=== PATIENT | female | born 1935 | race Native Hawaiian/Other Pacific Islander ===

== ENCOUNTER 2017-04-16 11:17 | Observation (INO) | payer MEDICARE ==
--- NOTE | 2017-04-16 12:37 | ED PDOC ---
HPI: Chest Pain Time Seen by Provider: 04/16/17 12:04 Chief Complaint (Nursing): Chest Pain Chief Complaint (Provider): Chest pain History Per: Patient History/Exam Limitations: no limitations Onset/Duration Of Symptoms: Days (x1) Current Symptoms Are (Timing): Still Present Quality: Other (heaviness) Associated Symptoms: Other (SOB, generalized weakness. ) Additional Complaint(s): Jaja Carballo is an 82 year old female, with a past medical history of hypercholesterolemia, hypertension, and diabetes, who presents to the emergency department complaining of chest pain associated with shortness of breath and generalized weakness onset since last night. Patient describes the pain as heaviness. Patient states last time she had a stress test was many years ago. She denies any fever, chills or cough. No further medical complaints. PMD: Becky Gayle Past Medical History Reviewed: Historical Data, Nursing Documentation, Vital Signs Vital Signs: Last Vital Signs Temp 98.0 F 04/16/17 12:03 Pulse 82 04/16/17 12:35 Resp 16 04/16/17 12:03 BP 154/72 H 04/16/17 12:03 Pulse Ox 95 04/16/17 12:45 - Medical History PMH: Diabetes, Gastritis, HTN, Hypercholesterolemia - Surgical History Surgical History: - Family History Family History: States: Unknown Family Hx - Home Medications Home Medications: Ambulatory Orders Medication Instructions Recorded Hydrochlorothiazide [Microzide] 12.5 mg PO DAILY 04/16/17 Losartan [Cozaar] 50 mg PO DAILY 04/16/17 Rosuvastatin Calcium [Crestor] 5 mg PO DAILY 04/16/17 metFORMIN [glucOPHAGE] 500 mg PO DAILY 04/16/17 - Allergies Allergies/Adverse Reactions: Allergies Allergy/AdvReac Type Severity Reaction Status Date / Time iodine Allergy RASH Verified 05/05/15 21:53 MICHELINE Risk Score for UA/NSTEMI - MICHELINE Risk Score Age > 64: YES 3 or more CAD Risk Factors: YES Known CAD (Stenosis greater than 50%): NO Aspirin use in past 7 days: NO Severe Angina: NO EKG ST changes greater than 0.5mm: NO Positive Cardiac Marker: NO MICHELINE Score: 2 Risk %: 8% Review of Systems ROS Statement: Except As Marked, All Systems Reviewed And Found Negative Constitutional: Positive for: Weakness (generalized). Negative for: Fever, Chills Cardiovascular: Positive for: Chest Pain Respiratory: Positive for: Shortness of Breath. Negative for: Cough Physical Exam - Reviewed Nursing Documentation Reviewed: Yes Vital Signs Reviewed: Yes - Physical Exam Appears: Positive for: Non-toxic Head Exam: Positive for: ATRAUMATIC, NORMAL INSPECTION, NORMOCEPHALIC Skin: Positive for: Normal Color, Warm, Dry Eye Exam: Positive for: Normal appearance, EOMI, PERRL Neck: Positive for: Painless ROM, Supple Cardiovascular/Chest: Positive for: Regular Rate, Rhythm. Negative for: Chest Non Tender (minimal sternal ), Murmur Respiratory: Positive for: Normal Breath Sounds. Negative for: Respiratory Distress Gastrointestinal/Abdominal: Positive for: Normal Exam, Soft. Negative for: Tenderness, Guarding, Rebound Back: Positive for: Normal Inspection. Negative for: L CVA Tenderness, R CVA Tenderness, Vertebral Tenderness Extremity: Positive for: Normal ROM. Negative for: Tenderness, Pedal Edema, Deformity, Swelling Neurologic/Psych: Positive for: Alert, Oriented. Negative for: Motor/Sensory Deficits - Laboratory Results Result Diagrams: 04/16/17 12:42 04/16/17 12:42 - ECG Interpretation Of ECG: NSR @ 93, nonspecific T wave abnormality. O2 Sat by Pulse Oximetry: 95 (RA) Pulse Ox Interpretation: Normal Medical Decision Making Medical Decision Making: Initial Impression: Chest pain Initial Plan: --EKG --CMP --Troponin I --Urine dipstick --CBC w/ differential --PTT --PT --Chest portable [RAD] --Urinalysis --Reevaluation Accession No. : [id number] Patient Name / ID : JOHN MYERS / [id number] Exam Date : 04/16/2017 12:41:58 ( Approved ) Study Comment : Sex / Age : F / 82Y Creator : Darryl Cespedes MD Dictator : Darryl Cespedes MD Engineering Analyst : Service Center Coordinator : Darryl Cespedes MD Approver2 : Report Date : 04/16/2017 13:41:56 My Comment : HISTORY: Chest pain COMPARISON: None. FINDINGS: LUNGS: No active pulmonary disease. PLEURA: No significant pleural effusion identified, no pneumothorax apparent. CARDIOVASCULAR: No radiographic findings to suggest acute or significant cardiovascular disease. OSSEOUS STRUCTURES: No significant abnormalities. VISUALIZED UPPER ABDOMEN: Normal. OTHER FINDINGS: None. IMPRESSION: No active disease. Scribe Attestation: Documented by Chaim Peng, acting as a scribe for Natacha Langston MD Provider Scribe Attestation: All medical record entries made by the Scribe were at my direction and personally dictated by me. I have reviewed the chart and agree that the record accurately reflects my personal performance of the history, physical exam, medical decision making, and the department course for this patient. I have also personally directed, reviewed, and agree with the discharge instructions and disposition. Disposition - Disposition Forms: Your Image by Brooke (Mongolian)
[2017-04-16 13:09] LABS: BASO % 0.3 % (0.0-2.0); EOS % 0.3 % (0.0-4.0); LYMPH # 1.8 K/uL (1.0-4.3); MEAN CELL VOLUME 94.1 fl (81.0-99.0); MEAN CORPUSCULAR HEMOGLOBIN 31.3 pg (27.0-31.0); MEAN CORPUSCULAR HGB CONC 33.2 g/dL (33.0-37.0); MONO # 0.4 K/uL (0.0-0.8); NEUT # 8.2 K/uL (1.8-7.0); NEUT % 78.4 % (50.0-75.0); NRBC % 0.3 % (0.0-0.0); RBC 3.83 Mil/uL (3.80-5.20); RED CELL DISTRIBUTION WIDTH 12.3 % (11.5-14.5); WHITE BLOOD COUNT 10.5 K/uL (4.8-10.8)
[2017-04-16 13:20] LABS: ALB/GLOB RATIO 1.2 (1.0-2.1); ALBUMIN 4.1 g/dL (3.5-5.0); ALT/SGPT 30 U/L (9-52); AST/SGOT 34 U/L (14-36); BLOOD UREA NITROGEN 13 mg/dl (7-17); CALCIUM 9.9 mg/dL (8.4-10.2); GFR AFRICAN-AMERICAN > 60; GFR NON-AFRICAN AMERICAN > 60
[2017-04-16 13:25] LABS: PARTIAL THROMBOPLASTIN TIME 36.9 Seconds (25.6-37.1); PROTHROMBIN TIME 11.5 Seconds (9.8-13.1)
--- NOTE | 2017-04-16 13:43 | RAD ---
HISTORY: Chest pain COMPARISON: None. FINDINGS: LUNGS: No active pulmonary disease. PLEURA: No significant pleural effusion identified, no pneumothorax apparent. CARDIOVASCULAR: No radiographic findings to suggest acute or significant cardiovascular disease. OSSEOUS STRUCTURES: No significant abnormalities. VISUALIZED UPPER ABDOMEN: Normal. OTHER FINDINGS: None. IMPRESSION: No active disease.
[2017-04-16 14:27] LABS: SQUAMOUS EPITHIAL 1 /hpf (0-5); URINE BILIRUBIN NEGATIVE (NEGATIVE); URINE BLOOD NEGATIVE (NEGATIVE); URINE CLARITY CLOUDY (Clear); URINE COLOR AMBER (YELLOW); URINE GLUCOSE (UA) NEG (Normal); URINE HYALINE CAST 0-2 /hpf (0-2); URINE LEUKOCYTE ESTERASE TRACE Leu/uL (Negative); URINE NITRATE NEGATIVE (NEGATIVE); URINE PROTEIN NEGATIVE (NEGATIVE); URINE UROBILINOGEN 0.2-1.0 mg/dL (0.2-1.0)
[2017-04-16 17:50] VITALS: BMI 23.3
[2017-04-17 00:56] VITALS: RESP 18
[2017-04-17 08:26] VITALS: BP 126/76; PULSE 79; TEMP 98; O2SAT 96
[2017-04-17] MEDS ORDERED: Enoxaparin 30 mg Syringe SC SCH (09:00)
--- NOTE | 2017-04-17 09:44 | CP.PCM.HP ---
History of Present Illness - History of Present Illness History of Present Illness: tthis 82-year-old female, with a history of hypertension and diabetes mellitus came to the emergency room complaining of a left-sided chest discomfort quite unconnected to any physical activity. The patient denied any radiation to the jaw or to the arm and this was never accompanied by any perspiration or nausea or vomiting. The discomfort lasted a few minutes and spontaneously resolved. It was not aggravated by deep inspiration or coughing. There was no fever or expectorate.the patient has never been a smoker and there is no history of prior myocardial infarction or congestive cardiac failure. Physical examination shows an elderly pleasant lady who is free of any pain at this point. She is alert of a coherent and afebrile. Her telemetry shows sinus rhythm at physiological rates. Her blood pressure was 124/74 mmHg. Her jugular venous pressure was not elevated and there was no edema over her lower extremities. The pedal pulses were well felt. There were no carotid bruits. There was a mild degree of tenderness in the left parasternal area. The apex was not palpable. The first and second heart sounds were normal. There was no murmur or gallop. There were no rales. Her electro-cardiogram taken in the emergency room and again this morning showed sinus rhythm with a normal EKG pattern. There were no ST-T abnormalities indicative of active myocardial ischemia. Her lab tests show normal troponin levels indicating no evidence off myocyte injury. The rest of her labs were normal. Impression: atypical chest pain no evidence of acute coronary syndrome. Hypertension and diabetes mellitus. The patient may be allowed to return home to continue her treatment as an outpatient. Present on Admission - Present on Admission Any Indicators Present on Admission: No Past Patient History - Infectious Disease Hx of Infectious Diseases: None - Past Medical History & Family History Past Medical History?: Yes - Past Social History Smoking Status: Never Smoked - CARDIAC Hx Cardiac Disorders: Yes Hx Hypertension: Yes - PULMONARY Hx Respiratory Disorders: No - NEUROLOGICAL Hx Neurological Disorder: No - HEENT Hx HEENT Problems: Yes Hx Cataracts: Yes - RENAL Hx Chronic Kidney Disease: No - ENDOCRINE/METABOLIC Hx Endocrine Disorders: Yes Hx Diabetes Mellitus Type 2: Yes - HEMATOLOGICAL/ONCOLOGICAL Hx Blood Disorders: No Hx AIDS: No Hx Human Immunodeficiency Virus (HIV): No - INTEGUMENTARY Hx Dermatological Problems: No - MUSCULOSKELETAL/RHEUMATOLOGICAL Hx Musculoskeletal Disorders: No Hx Falls: No - GASTROINTESTINAL Hx Gastrointestinal Disorders: Yes Hx Gastritis: Yes - GENITOURINARY/GYNECOLOGICAL Hx Genitourinary Disorders: No Other/Comment: MISCARRIAGE X2 - PSYCHIATRIC Hx Psychophysiologic Disorder: No Hx Substance Use: No - SURGICAL HISTORY Hx Surgeries: Yes Hx Section: Yes (x1) Other/Comment: LAPAROSCOPY 1 YR AGO - ANESTHESIA Hx Anesthesia: Yes Hx Anesthesia Reactions: No Hx Malignant Hyperthermia: No Has any member of the family had a problem w/ anesthesia?: No Meds Allergies/Adverse Reactions: Allergies Allergy/AdvReac Type Severity Reaction Status Date / Time iodine Allergy RASH Verified 05/05/15 21:53 Results - Vital Signs Recent Vital Signs: Last Vital Signs Temp 98 F 04/17/17 08:00 Pulse 79 04/17/17 08:24 Resp 18 04/17/17 08:00 BP 126/76 04/17/17 08:24 Pulse Ox 96 04/17/17 08:00 - Labs Result Diagrams: 04/16/17 12:42 04/16/17 12:42 Labs: Laboratory Results - last 24 hr 04/16/17 04/16/17 04/16/17 12:42 12:42 12:42 WBC 10.5 RBC 3.83 Hgb 12.0 Hct 36.0 MCV 94.1 MCH 31.3 H MCHC 33.2 RDW 12.3 Plt Count 234 MPV 8.0 Neut % (Auto) 78.4 H Lymph % (Auto) 17.0 L Castro % (Auto) 4.0 Eos % (Auto) 0.3 Baso % (Auto) 0.3 Neut # (Auto) 8.2 H Lymph # (Auto) 1.8 Castro # (Auto) 0.4 Eos # (Auto) 0.0 Baso # (Auto) 0.0 PT 11.5 INR 1.0 APTT 36.9 Sodium 135 Potassium 3.9 Chloride 95 L Carbon Dioxide 28 Anion Gap 16 BUN 13 Creatinine 0.5 L Est GFR ( Amer) > 60 Est GFR (Non-Af Amer) > 60 Random Glucose 111 H Calcium 9.9 Total Bilirubin 0.5 AST 34 ALT 30 Alkaline Phosphatase 85 Troponin I < 0.0120 Total Protein 7.6 Albumin 4.1 Globulin 3.5 Albumin/Globulin Ratio 1.2 Urine Color Urine Clarity Urine pH Ur Specific [place] Urine Protein Urine Glucose (UA) Urine Ketones Urine Blood Urine Nitrate Urine Bilirubin Urine Urobilinogen Ur Leukocyte Esterase Urine RBC (Auto) Urine Microscopic WBC Ur Squamous Epith Cells Hyaline Casts 04/16/17 04/16/17 13:45 19:57 WBC RBC Hgb Hct MCV MCH MCHC RDW Plt Count MPV Neut % (Auto) Lymph % (Auto) Castro % (Auto) Eos % (Auto) Baso % (Auto) Neut # (Auto) Lymph # (Auto) Castro # (Auto) Eos # (Auto) Baso # (Auto) PT INR APTT Sodium Potassium Chloride Carbon Dioxide Anion Gap BUN Creatinine Est GFR ( Amer) Est GFR (Non-Af Amer) Random Glucose Calcium Total Bilirubin AST ALT Alkaline Phosphatase Troponin I < 0.0120 Total Protein Albumin Globulin Albumin/Globulin Ratio Urine Color Adrianna Urine Clarity Cloudy Urine pH 5.0 Ur Specific [place] 1.017 Urine Protein Negative Urine Glucose (UA) Neg Urine Ketones Negative Urine Blood Negative Urine Nitrate Negative Urine Bilirubin Negative Urine Urobilinogen 0.2-1.0 Ur Leukocyte Esterase Trace Urine RBC (Auto) 3 Urine Microscopic WBC 3 Ur Squamous Epith Cells 1 Hyaline Casts 0-2
--- NOTE | 2017-04-17 19:01 | CARD ---
APPROVED REPORT EKG Measurement Heart [id number] MI [id number] <Conclusion> Normal sinus rhythm Possible Left atrial enlargement Borderline ECG
--- NOTE | 2017-04-17 19:16 | CARD ---
APPROVED REPORT EKG Measurement Heart [id number] [place] [id number] <Conclusion> Normal sinus rhythm Possible Left atrial enlargement Left ventricular hypertrophy Nonspecific T wave abnormality Abnormal ECG
== END 2017-04-17 11:24 | disposition home or self-care (01) ==
LOC: H.ER 11:17 → H.ERHOLD 13:50 → H.TEL 15:39
PROVIDERS: ADMIT Internal Medicine Cardiovascular Disease; ATTEND Internal Medicine Cardiovascular Disease
DX: R07.89 Other chest pain (principal); I10 Essential (primary) hypertension; K29.70 Gastritis, unspecified, without bleeding; Z79.84 Long term (current) use of oral hypoglycemic drugs; Z79.899 Other long term (current) drug therapy; E11.9 Type 2 diabetes mellitus without complications; E78.00 Pure hypercholesterolemia, unspecified
CPT/HCPCS: 71045; 80053; 81003; 84484; 85025; 85610; 85730; 93005; 99285; G0378; J1650

== ENCOUNTER 2017-05-06 00:16 | Emergency (ER) | payer MEDICARE ==
[2017-05-06 00:17] VITALS: BMI 23.3
[2017-05-06 00:28] VITALS: TEMP 97.9
[2017-05-06] MEDS ORDERED: Sodium Chloride 0.9% 1,000 ML IV STA (00:48)
--- NOTE | 2017-05-06 01:03 | ED PDOC ---
HPI: Abdomen Time Seen by Provider: 05/06/17 00:27 Chief Complaint (Nursing): GI Problem Chief Complaint (Provider): Abdominal Pain History Per: Patient History/Exam Limitations: no limitations, physical impairment Onset/Duration Of Symptoms: Persistent Outside of [place] travel?: No Current Symptoms Are (Timing): Still Present Location Of Pain/Discomfort: Epigastric Associated Symptoms: Vomiting. denies: Fever, Diarrhea Additional Complaint(s): 82 year old female presents to ED with complaints of persistent abdominal pain and has a past medical history of HTN, gastritis, and diverticulitis. Notes she was just seen at [facility] for gastritis, her CT showed mild diverticulitis, and was subsequently discharged with medication. (+) "gastritic" pain in the mid -epigastric region, vomiting x7 episodes, and weakness status post vomiting. (- ) fever, diarrhea, or suprapubic pain. PCP: Blake Gayle V Past Medical History Reviewed: Historical Data, Nursing Documentation, Vital Signs Vital Signs: Last Vital Signs Temp 97.9 F 05/06/17 00:25 Pulse 76 05/06/17 05:41 Resp 14 05/06/17 05:41 BP 133/61 05/06/17 05:41 Pulse Ox 98 05/06/17 05:41 - Medical History PMH: Diabetes, Gastritis, HTN, Hypercholesterolemia Denies: HIV, Chronic Kidney Disease - Surgical History Surgical History: Cholecystectomy, Other surgeries: Laparoscopy - Family History Family History: States: Unknown Family Hx - Social History Current smoker - smoking cessation education provided: No Ex-Smoker (has not smoked in the last 12 months): No Alcohol: None Drugs: Denies - Home Medications Home Medications: Ambulatory Orders Medication Instructions Recorded Hydrochlorothiazide [Microzide] 12.5 mg PO DAILY 04/16/17 Losartan [Cozaar] 50 mg PO DAILY 04/16/17 Rosuvastatin Calcium [Crestor] 5 mg PO DAILY 04/16/17 metFORMIN [glucOPHAGE] 500 mg PO DAILY 04/16/17 Famotidine [Pepcid] 20 mg PO BID PRN #10 tab 05/06/17 - Allergies Allergies/Adverse Reactions: Allergies Allergy/AdvReac Type Severity Reaction Status Date / Time iodine Allergy RASH Verified 05/05/15 21:53 Review of Systems ROS Statement: Except As Marked, All Systems Reviewed And Found Negative Constitutional: Negative for: Fever Gastrointestinal: Positive for: Vomiting, Abdominal Pain (mid-epigastric). Negative for: Diarrhea Physical Exam - Reviewed Nursing Documentation Reviewed: Yes Vital Signs Reviewed: Yes - Physical Exam Appears: Positive for: Non-toxic, No Acute Distress (slightly weak) Skin: Positive for: Normal Color, Warm, Dry Eye Exam: Positive for: Normal appearance ENT: Positive for: Normal ENT Inspection Cardiovascular/Chest: Positive for: Regular Rate, Rhythm. Negative for: Murmur Respiratory: Positive for: Normal Breath Sounds. Negative for: Respiratory Distress Gastrointestinal/Abdominal: Positive for: Soft, Tenderness (mid-epigastric tenderness. No RUQ/RLQ tenderness), Other (laparoscopic surgical scar) Back: Positive for: Normal Inspection Extremity: Positive for: Normal ROM. Negative for: Deformity Neurologic/Psych: Positive for: Alert, Oriented - Laboratory Results Result Diagrams: 05/06/17 01:16 05/06/17 01:16 - ECG O2 Sat by Pulse Oximetry: 99 (RA) Pulse Ox Interpretation: Normal Medical Decision Making Medical Decision Makin Initial impression: gastritis Initial plan: * Labs * Lipase * NS IV * Pepcid 20mg IVP * Zofran Inj 4mg IVP * Re-eval 0230 Labs reviewed: patient's potassium is low. * Potassium Chloride 40meq PO * Re-eval 0515 CXR: NAD as per provider. Trop: negative Patient notes that she feels better after belching. Patient is stable for discharge home. Return precautions discussed with patient and advised patient to follow up with PCP in 1-2 days. Condition: improved Scribe Attestation: Documented by Yasmeen Perez acting as a scribe for Sung Smart MD. Scribe Attestation: All medical record entries made by the Scribe were at my direction and personally dictated by me. I have reviewed the chart and agree that the record accurately reflects my personal performance of the history, physical exam, medical decision making, and the department course for this patient. I have also personally directed, reviewed, and agree with the discharge instructions and disposition. Disposition - Clinical Impression Clinical Impression: Gastritis - Patient ED Disposition Is Patient to be Admitted: No Counseled Patient/Family Regarding: Studies Performed, Diagnosis, Need For Followup - Disposition Disposition: Routine/Home Disposition Time: 04:05 Condition: IMPROVED Additional Instructions: follow up with your primary doctor in 1-2 days return to the ED with any worsening or concerning symptoms Prescriptions: Famotidine [Pepcid] 20 mg PO BID PRN #10 tab PRN Reason: Heartburn Instructions: Gastritis Forms: [facility] (Macedonian)
[2017-05-06 01:23] LABS: BASO % 0.5 % (0.0-2.0); EOS # 0.1 K/uL (0.0-0.7); EOS % 1.2 % (0.0-4.0); HEMOGLOBIN 12.1 g/dL (12.0-16.0); LYMPH # 1.8 K/uL (1.0-4.3); LYMPH % 27.1 % (20.0-40.0); MEAN CELL VOLUME 95.1 fl (81.0-99.0); MEAN CORPUSCULAR HEMOGLOBIN 31.6 pg (27.0-31.0); MEAN CORPUSCULAR HGB CONC 33.3 g/dL (33.0-37.0); MEAN PLATELET VOLUME 7.9 fl (7.2-11.7); MONO # 0.5 K/uL (0.0-0.8); MONO % 7.4 % (0.0-10.0); NEUT # 4.2 K/uL (1.8-7.0); NEUT % 63.8 % (50.0-75.0); NRBC % 0.2 % (0.0-0.0); RBC 3.82 Mil/uL (3.80-5.20); RED CELL DISTRIBUTION WIDTH 12.4 % (11.5-14.5); WHITE BLOOD COUNT 6.6 K/uL (4.8-10.8)
[2017-05-06 02:04] LABS: ALBUMIN 4.2 g/dL (3.5-5.0); ALT/SGPT 25 U/L (9-52); AST/SGOT 32 U/L (14-36); BLOOD UREA NITROGEN 7 mg/dl (7-17); CALCIUM 10.2 mg/dL (8.4-10.2); GFR AFRICAN-AMERICAN > 60; GFR NON-AFRICAN AMERICAN > 60; LIPASE 103 U/L (23-300)
[2017-05-06] MEDS ORDERED: Potassium Chloride 20 mEq ER Tab PO ONE ×2 (02:37→03:30)
[2017-05-06 05:42] VITALS: BP 133/61; PULSE 76; RESP 14
--- NOTE | 2017-05-06 10:01 | RAD ---
HISTORY: chest pain COMPARISON: Chest radiograph dated 04/16/2017. TECHNIQUE: Chest PA and lateral FINDINGS: LUNGS: No active pulmonary disease. PLEURA: No significant pleural effusion identified. No pneumothorax apparent. CARDIOVASCULAR: Atherosclerotic aortic calcifications. Cardiomediastinal silhouette unchanged. OSSEOUS STRUCTURES: Unchanged. VISUALIZED UPPER ABDOMEN: Right upper quadrant surgical clips redemonstrated. OTHER FINDINGS: None. IMPRESSION: No active disease.
[2017-05-07 05:21] VITALS: O2SAT 99
== END 2017-05-06 05:46 | disposition home or self-care (01) ==
LOC: H.ER 00:16
DX: K29.70 Gastritis, unspecified, without bleeding (principal); E11.9 Type 2 diabetes mellitus without complications; I10 Essential (primary) hypertension; Z87.891 Personal history of nicotine dependence; Z79.84 Long term (current) use of oral hypoglycemic drugs; E78.00 Pure hypercholesterolemia, unspecified
CPT/HCPCS: 71046; 80053; 83690; 84484; 85025; 96374; 99283; J2405; J7040

== ENCOUNTER 2017-05-08 14:09 | Inpatient (IN) | payer MEDICARE ==
[2017-05-08 14:09] VITALS: BMI 23.3
[2017-05-08] MEDS ORDERED: Sodium Chloride 0.9% 1,000 ML IV ONE (15:00)
--- NOTE | 2017-05-08 15:00 | ED PDOC ---
HPI: Abdomen <Hetal Casillas - Last Filed: 05/08/17 17:56> <Louie Lipscomb III - Last Filed: 05/08/17 18:40> Chief Complaint (Nursing): Abdominal Pain Additional Complaint(s): 82yo F with PMHx HTN, HLD c/o abd pain. generalized abd pain, constant, no radiation, a/w nausea[place] [facility] [place] showing mild diverticulitis on CT abd/pelvis, d/c with cipro/flagyl po. Pt continued to not feel well and [facility] ED visit 4 days ago, d/c with pepcid PO. Continues to have decreased PO, afebrile, nausea, loose BM. Seen by GI today and reccommended pt get eval in ED if not improved. Last took cipro/flagyl this AM. PCP: Dr. Gayle (Hetal Casillas) Supervising Attending Note <Hetal Casillas - Last Filed: 05/08/17 17:56> - Attestation: I have personally seen and examined this patient.: Yes I have fully participated in the care of the patient.: Yes I have reviewed all pertinent clinical information: Yes <Louie Lipscomb III - Last Filed: 05/08/17 18:40> - Notes: Notes:: 82yo female with now worsening diverticulitis w microperforation w failure outpatient therapy Zosyn initiated Does not meet SIRS criteria, stable for med surg Discussed w Dr Brown 620p covering PMD Dr Tyron Gayle- admit hospitalist D/w Dr Recinos hospitalist 630p Admitting team to decide on GI consult (Louie Lipscomb III) Past Medical History Reviewed: Historical Data, Nursing Documentation, Vital Signs - Medical History PMH: Diabetes, Gastritis, HTN, Hypercholesterolemia Denies: HIV, Chronic Kidney Disease - Surgical History Surgical History: Cholecystectomy, - Family History Family History: States: Unknown Family Hx <Hetal Casillas - Last Filed: 05/08/17 17:56> <Louie Lipscomb III - Last Filed: 05/08/17 18:40> Vital Signs: Last Vital Signs Temp 98.0 F 05/08/17 14:33 Pulse 90 05/08/17 14:33 Resp 16 05/08/17 14:33 BP 148/76 05/08/17 14:33 Pulse Ox 97 05/08/17 17:57 - Home Medications Home Medications: Ambulatory Orders Medication Instructions Recorded Hydrochlorothiazide [Microzide] 12.5 mg PO DAILY 04/16/17 Losartan [Cozaar] 50 mg PO DAILY 04/16/17 Rosuvastatin Calcium [Crestor] 5 mg PO HS 04/16/17 metFORMIN [glucOPHAGE] 500 mg PO QPM 04/16/17 Famotidine [Pepcid] 20 mg PO BID PRN #10 tab 05/06/17 Ascorbic Acid [Vitamin C 500 mg 500 mg PO DAILY 05/08/17 Tab] Cholecalciferol (Vitamin D3) 5,000 unit PO BID 05/08/17 [Vitamin D3] Ciprofloxacin [Cipro] 500 mg PO Q12 05/08/17 Glucosamn/[place]n/C/Mn/[place] 1 tab PO BID 05/08/17 [Cvs Glucosamine Chondroitin Tb] Vit A/Vit C/Vit E/Zinc/Copper 1 tab PO BID 05/08/17 [Preservision Areds Tablet] Vitamin B Complex [Balance B-100] 1 tab PO DAILY 05/08/17 metroNIDAZOLE [Flagyl] 500 mg PO Q8 05/08/17 - Allergies Allergies/Adverse Reactions: Allergies Allergy/AdvReac Type Severity Reaction Status Date / Time iodine Allergy RASH Verified 05/05/15 21:53 Review of Systems ROS Statement: Except As Marked, All Systems Reviewed And Found Negative Gastrointestinal: Positive for: Nausea, Abdominal Pain <Tu,Ting - Last Filed: 05/08/17 17:56> Physical Exam - Reviewed Nursing Documentation Reviewed: Yes Vital Signs Reviewed: Yes - Physical Exam Appears: Positive for: Well, Non-toxic Head Exam: Positive for: ATRAUMATIC, NORMAL INSPECTION Skin: Positive for: Warm, Dry Eye Exam: Positive for: Normal appearance Neck: Positive for: Normal, Supple Cardiovascular/Chest: Positive for: Regular Rate, Rhythm, Chest Non Tender Respiratory: Positive for: Normal Breath Sounds. Negative for: Decreased Breath Sounds Gastrointestinal/Abdominal: Positive for: Bowel Sounds, Soft, Tenderness Back: Positive for: Normal Inspection Extremity: Positive for: Normal ROM Lymphatic: Negative for: Adenopathy Neurologic/Psych: Positive for: Alert, Oriented <Tu,Ting - Last Filed: 05/08/17 17:56> - Laboratory Results Result Diagrams: 05/08/17 15:18 05/08/17 15:18 - ECG O2 Sat by Pulse Oximetry: 97 <Hetal Casillas - Last Filed: 05/08/17 17:56> - Laboratory Results Result Diagrams: 05/08/17 15:18 05/08/17 15:18 <Louie Lipscomb III - Last Filed: 05/08/17 18:40> Medical Decision Making <Hetal Casillas - Last Filed: 05/08/17 17:56> <Louie Lipscomb III - Last Filed: 05/08/17 18:40> Medical Decision Making: DDx diverticulitis, abd abscess CBC, CMP NS 125cc/hr zofran 4mg IV x1 pepcid 20mg IV x1 reassessment [address] abd/pelvis PO/IV cont reassessment 1754 CT abd/pelvis PO/IV cont: acute sigmoid diverticulitis admit to hospital, pt failed outpt therapy blood cx zosyn (Hetal Casillas) Disposition - Disposition Disposition Time: 17:57 <Hetal Casillas - Last Filed: 05/08/17 17:56> <Louie Lipscomb III - Last Filed: 05/08/17 18:40> - Clinical Impression Clinical Impression: Sigmoid diverticulitis - Disposition Condition: STABLE Forms: [facility] (Vietnamese)
[2017-05-08 15:22] LABS: BASO % 0.5 % (0.0-2.0); EOS % 0.1 % (0.0-4.0); HEMOGLOBIN 12.6 g/dL (12.0-16.0); LYMPH # 1.7 K/uL (1.0-4.3); LYMPH % 21.9 % (20.0-40.0); MEAN CELL VOLUME 94.1 fl (81.0-99.0); MEAN CORPUSCULAR HEMOGLOBIN 32.2 pg (27.0-31.0); MEAN CORPUSCULAR HGB CONC 34.2 g/dL (33.0-37.0); MEAN PLATELET VOLUME 7.8 fl (7.2-11.7); MONO # 0.4 K/uL (0.0-0.8); MONO % 4.9 % (0.0-10.0); NEUT # 5.7 K/uL (1.8-7.0); NEUT % 72.6 % (50.0-75.0); NRBC % 0.1 % (0.0-0.0); RBC 3.91 Mil/uL (3.80-5.20); RED CELL DISTRIBUTION WIDTH 12.5 % (11.5-14.5); WHITE BLOOD COUNT 7.8 K/uL (4.8-10.8)
[2017-05-08 15:55] LABS: ALB/GLOB RATIO 1.1 (1.0-2.1); ALBUMIN 4.4 g/dL (3.5-5.0); ALT/SGPT 55 U/L (9-52); AST/SGOT 67 U/L (14-36); BLOOD UREA NITROGEN 6 mg/dl (7-17); CALCIUM 9.4 mg/dL (8.4-10.2); GFR AFRICAN-AMERICAN > 60; GFR NON-AFRICAN AMERICAN > 60
[2017-05-08] MEDS ORDERED: Iohexol 240 (50 ml) PO ONE (15:58)
--- NOTE | 2017-05-08 17:47 | CT ---
PROCEDURE: CT Abdomen and Pelvis without intravenous contrast HISTORY: LLQ and epigastric pain, dx diverticulitis thursday COMPARISON: None. TECHNIQUE: Unenhanced study. Neither oral nor intravenous contrast administered. Sensitivity and specificity for acute inflammatory processes limited by the absence of oral and intravenous contrast. Radiation dose: Total exam DLP = 335.61 mGy-cm. This CT exam was performed using one or more of the following dose reduction techniques: Automated exposure control, adjustment of the mA and/or kV according to patient size, and/or use of iterative reconstruction technique. FINDINGS: LOWER THORAX: Unremarkable. LIVER: Unremarkable. No gross lesion or ductal dilatation. GALLBLADDER AND BILE DUCTS: Status post cholecystectomy. No abnormality is seen in the gallbladder fossa. PANCREAS: Unremarkable. No gross lesion or ductal dilatation. SPLEEN: Unremarkable. ADRENALS: Unremarkable. No mass. KIDNEYS AND URETERS: Unremarkable. No hydronephrosis. No solid mass. VASCULATURE: Unremarkable. No aortic aneurysm. BOWEL: Severe sigmoid diverticulosis with acute inflammatory component. Small micro perforations identified. Sparing of the rectum and ascending colon with respect to the inflammatory component. APPENDIX: Unremarkable. Normal appendixA normal appendix is not visualized. There are no right lower quadrant inflammatory changes or other indirect signs of acute appendicitis. . PERITONEUM: Unremarkable. No free fluid. No free air. LYMPH NODES: Unremarkable. No enlarged lymph nodes. BLADDER: Unremarkable. REPRODUCTIVE: Unremarkable. BONES: No acute fracture. Scoliosis, secondary degenerative change at multiple levels. OTHER FINDINGS: None. IMPRESSION: Acute sigmoid diverticulitis. Additional benign and/or incidental findings described above.
[2017-05-08] MEDS ORDERED: Piperacillin/Tazobact 4.5 GM in Sodium Chloride 0.9% 100 ML IVPB STA (17:51)
[2017-05-08] MEDS ORDERED: Dextrose 5%/0.9% NS 1,000 ML IV ONE (19:04)
[2017-05-08] MEDS ORDERED: Alum-Mag Hydrox-Simethicone Susp (30 mL) PO PRN (19:07)
[2017-05-08] MEDS ORDERED: Alum-Mag Hydrox-Simethicone Susp (30 mL) PO ONE (19:07)
--- NOTE | 2017-05-08 19:33 | CP.PCM.HP ---
History of Present Illness - History of Present Illness History of Present Illness: CC: Abdominal pain This is an 82 year old female with a past medical history significant for hypertension, hyperlipidemia, Type 2 DM controlled with Metformin, who presents to the ED with the complaint of generalized abdominal pain, nausea without vomiting. The pain is mild to moderate, dull, crampy, constant, associated with several bouts of diarrhea yesterday and today. The patient was seen at [facility] [address] days ago and had CT abdomen/pelvis revealing diverticulitis at that time and was discharged with Cipro/Flagyl. the patient continued to have nuasea and abdominal painand then came to the [facility] ED 4 days ago, was tx for hypokalemia and reflux sx and discharged with Pepcid. the patient now presents again to [facility] ED. here in the ED she had repeat CT scan of the abdomen which showed Acute signoid diverticulitis with multiple small micro perforations identified. The patient 's labs show hyponatremia 130, K 3.8, chloride 89, AST of 67, ALT of 55. The patient is to be placed on med/surg observation for further workup and GI consultation. Patient denies chest pain, shortness of breath, fevers, chills, headache. All of the patient's questions were answered at the bedside. Present on Admission - Present on Admission Any Indicators Present on Admission: No Review of Systems - Review of Systems Review of Systems: A 12 point ROS was conducted and found to be negative other than what was mentioned in the HPI. Past Patient History - Infectious Disease Hx of Infectious Diseases: None - Past Medical History & Family History Past Medical History?: Yes Past Family History: Reviewed and not pertinent - Past Social History Smoking Status: Never Smoked Alcohol: None Drugs: Denies - CARDIAC Hx Hypercholesterolemia: Yes Hx Hypertension: Yes - PULMONARY Hx Respiratory Disorders: No - NEUROLOGICAL Hx Neurological Disorder: No - HEENT Hx HEENT Problems: Yes Hx Cataracts: Yes - RENAL Hx Chronic Kidney Disease: No - ENDOCRINE/METABOLIC Hx Endocrine Disorders: Yes Hx Diabetes Mellitus Type 2: Yes - HEMATOLOGICAL/ONCOLOGICAL Hx Human Immunodeficiency Virus (HIV): No - INTEGUMENTARY Hx Dermatological Problems: No - MUSCULOSKELETAL/RHEUMATOLOGICAL Hx Musculoskeletal Disorders: No Hx Falls: No - GASTROINTESTINAL Hx Gastritis: Yes - GENITOURINARY/GYNECOLOGICAL Hx Genitourinary Disorders: No Other/Comment: MISCARRIAGE X2 - PSYCHIATRIC Hx Psychophysiologic Disorder: No Hx Substance Use: No - SURGICAL HISTORY Hx Cholecystectomy: Yes - ANESTHESIA Hx Anesthesia: Yes Hx Anesthesia Reactions: No Hx Malignant Hyperthermia: No Meds Allergies/Adverse Reactions: Allergies Allergy/AdvReac Type Severity Reaction Status Date / Time iodine Allergy RASH Verified 05/05/15 21:53 Physical Exam - Additional Findings Additional findings: Physical exam: Constitutional- cooperative, awake, alert Head- NCAT, PERRL Eye- PERRL, EOMI ENT- normal exam, MMM. Neck- normal inspection, supple, no JVD Respiratory- CTAB, no wheezes rales rhonchi Cardiovascular- RRR, +S1, +S2 no MRG GI/Abdominal- mild diffuse tenderness most prominent in the LLQ, normal bowel sounds, soft, no mass, no hsm Skin- warm, dry Extremities Exam- normal capillary refill, normal inspection Neurological Exam- alert, awake, oriented Psych- normal mood, normal affect Results - Vital Signs Recent Vital Signs: Last Vital Signs Temp 98.0 F 05/08/17 14:33 Pulse 90 05/08/17 14:33 Resp 16 05/08/17 14:33 BP 148/76 05/08/17 14:33 Pulse Ox 97 05/08/17 17:57 - Labs Result Diagrams: 05/08/17 15:18 05/08/17 15:18 Labs: Laboratory Results - last 24 hr 05/08/17 05/08/17 15:18 15:18 WBC 7.8 RBC 3.91 Hgb 12.6 Hct 36.8 MCV 94.1 MCH 32.2 H MCHC 34.2 RDW 12.5 Plt Count 247 MPV 7.8 Neut % (Auto) 72.6 Lymph % (Auto) 21.9 [place] % (Auto) 4.9 Eos % (Auto) 0.1 Baso % (Auto) 0.5 Neut # (Auto) 5.7 Lymph # (Auto) 1.7 [place] # (Auto) 0.4 Eos # (Auto) 0.0 Baso # (Auto) 0.0 Sodium 130 L Potassium 3.8 Chloride 89 L Carbon Dioxide 26 Anion Gap 19 BUN 6 L Creatinine 0.5 L Est GFR ( Amer) > 60 Est GFR (Non-Af Amer) > 60 Random Glucose 123 H Calcium 9.4 Total Bilirubin 0.4 AST 67 H D ALT 55 H D Alkaline Phosphatase 70 Total Protein 8.3 H Albumin 4.4 Globulin 3.9 Albumin/Globulin Ratio 1.1 Assessment & Plan - Assessment and Plan (Free Text) Plan: ASSESSMENT/PLAN 82 yo female with a past medical history significant for hypertension, hyperlipidemia, Type 2 DM controlled with Metformin, admitted to the hospital for recurrent diverticulitis not responding to PO antibiotics. 1) Recurrent diverticulitis not responding to PO ABX - Med/surg obs - Consultation with Dr. Dejesus for GI - Zosyn 3.375mg IVPB q 6 hours, required as patient did not respond to cipro/ flagyl - NPO except for meds and ice chips - IV fluids, D5 NS at 125 cc/hour 2) Hypertension - Continue HCTZ 12.5 mg po daily - Continue Losartan 50 mg po daily - Monitor BP 3) Hyperlipidemia - Continue statin - Chronic 4) DM type 2 - Start sliding scale with accucheks AC+HS - appears well controlled - Hold metformin due to CT w/ contrast 5) DVT prophylaxis - SCDs
[2017-05-08] MEDS ORDERED: Alum-Mag Hydrox-Simethicone Susp (30 mL) ONE (19:52)
[2017-05-08] MEDS: Piperacillin/Tazobact 3.375 GM in Sodium Chloride 0.9% 100 ML IVPB SCH (22:32)
[2017-05-09] MEDS: Piperacillin/Tazobact 3.375 GM in Sodium Chloride 0.9% 100 ML IVPB SCH ×4 (04:19→21:35)
[2017-05-09 07:10] LABS: HEMOGLOBIN 11.1 g/dL (12.0-16.0); MEAN CELL VOLUME 93.6 fl (81.0-99.0); MEAN CORPUSCULAR HEMOGLOBIN 32.5 pg (27.0-31.0); MEAN CORPUSCULAR HGB CONC 34.8 g/dL (33.0-37.0); RBC 3.4 Mil/uL (3.80-5.20); RED CELL DISTRIBUTION WIDTH 12.5 % (11.5-14.5); WHITE BLOOD COUNT 5.7 K/uL (4.8-10.8)
[2017-05-09 07:16] LABS: BLOOD UREA NITROGEN 3 mg/dl (7-17); CALCIUM 8.6 mg/dL (8.4-10.2); GFR AFRICAN-AMERICAN > 60; GFR NON-AFRICAN AMERICAN > 60
--- NOTE | 2017-05-09 08:31 | CP.PCM.CON ---
History of Present Illness - History of Present Illness History of Present Illness: 82 year old female presents to the ED with the complaint of generalized abdominal pain, nausea without vomiting. The pain is mild to moderate, dull, crampy, constant, associated with several bouts of diarrhea yesterday and today. The patient was seen at [facility] [address] abdomen/pelvis revealing diverticulitis at that time and was discharged with Cipro/Flagyl. the patient continued to have nuasea and abdominal pain and then came to the [facility] ED 4 days ago, was tx for hypokalemia and reflux sx and discharged with Pepcid. the patient now presents again to [facility] ED. here in the ED she had repeat CT scan of the abdomen which showed Acute sigmoid diverticulitis with multiple small micro perforations identified Pt had BM today WBC: 5,700 Hgb: 11.1 EKG: not done BP: 124/70; afebrile PMH: hypertension, hyperlipidemia, Type 2 DM Review of Systems - Gastrointestinal Gastrointestinal: Abdominal Pain Past Patient History - Infectious Disease Hx of Infectious Diseases: None - Past Medical History & Family History Past Medical History?: Yes - Past Social History Smoking Status: Never Smoked - CARDIAC Hx Cardiac Disorders: Yes Hx Hypercholesterolemia: Yes Hx Hypertension: Yes - PULMONARY Hx Respiratory Disorders: No - NEUROLOGICAL Hx Neurological Disorder: No - HEENT Hx HEENT Problems: Yes Hx Cataracts: Yes - RENAL Hx Chronic Kidney Disease: No - ENDOCRINE/METABOLIC Hx Endocrine Disorders: Yes Hx Diabetes Mellitus Type 2: Yes - HEMATOLOGICAL/ONCOLOGICAL Hx Blood Disorders: No Hx Human Immunodeficiency Virus (HIV): No - INTEGUMENTARY Hx Dermatological Problems: No - MUSCULOSKELETAL/RHEUMATOLOGICAL Hx Musculoskeletal Disorders: No Hx Falls: No - GASTROINTESTINAL Hx Gastrointestinal Disorders: Yes Hx Diverticulitis: Yes Hx Gastritis: Yes - GENITOURINARY/GYNECOLOGICAL Hx Genitourinary Disorders: No Other/Comment: MISCARRIAGE X2 - PSYCHIATRIC Hx Psychophysiologic Disorder: No Hx Substance Use: No - SURGICAL HISTORY Hx Surgeries: Yes Hx Section: Yes (x1) Hx Cholecystectomy: Yes - ANESTHESIA Hx Anesthesia: Yes Hx Anesthesia Reactions: No Hx Malignant Hyperthermia: No Has any member of the family had a problem w/ anesthesia?: No Meds Allergies/Adverse Reactions: Allergies Allergy/AdvReac Type Severity Reaction Status Date / Time iodine Allergy RASH Verified 05/05/15 21:53 - Medications Medications: Current Medications Al Hydrox/Mg Hydrox/Simethicone (Maalox Plus 30 Ml) 30 ml PO Q4 PRN PRN Reason: Indigestion / Heartburn Atorvastatin Calcium (Lipitor) 10 mg PO HS [facility] Last Admin: 05/08/17 22:34 Dose: Not Given Hydrochlorothiazide (Microzide) 12.5 mg PO DAILY [facility] Piperacillin Sod/Tazobactam (Sod 3.375 gm/ Sodium Chloride) 100 mls @ 100 mls/ hr IVPB Q6 [facility] PRN Reason: Protocol Last Admin: 05/09/17 04:19 Dose: 100 mls/hr Losartan Potassium (Cozaar) 50 mg PO DAILY [facility] Ondansetron HCl (Zofran Inj) 4 mg IVP Q6 PRN PRN Reason: Nausea/Vomiting Pantoprazole Sodium (Protonix Ec Tab) 40 mg PO DAILY [facility] Physical Exam - Constitutional Appears: In Acute Distress - Respiratory Exam Respiratory Exam: NORMAL BREATHING PATTERN - Cardiovascular Exam Cardiovascular Exam: REGULAR RHYTHM Results - Vital Signs Recent Vital Signs: Last Vital Signs Temp 97.6 F 05/09/17 00:18 Pulse 65 05/09/17 00:18 Resp 19 05/09/17 00:18 BP 119/64 05/09/17 00:18 Pulse Ox 96 05/09/17 00:18 - Labs Result Diagrams: 05/09/17 05:20 05/09/17 05:20 Labs: Laboratory Results - last 24 hr 05/08/17 05/08/17 05/08/17 15:18 15:18 21:45 WBC 7.8 RBC 3.91 Hgb 12.6 Hct 36.8 MCV 94.1 MCH 32.2 H MCHC 34.2 RDW 12.5 Plt Count 247 MPV 7.8 Neut % (Auto) 72.6 Lymph % (Auto) 21.9 [place] % (Auto) 4.9 Eos % (Auto) 0.1 Baso % (Auto) 0.5 Neut # (Auto) 5.7 Lymph # (Auto) 1.7 [place] # (Auto) 0.4 Eos # (Auto) 0.0 Baso # (Auto) 0.0 Sodium 130 L Potassium 3.8 Chloride 89 L Carbon Dioxide 26 Anion Gap 19 BUN 6 L Creatinine 0.5 L Est GFR ( Amer) > 60 Est GFR (Non-Af Amer) > 60 POC Glucose (mg/dL) 112 H Random Glucose 123 H Calcium 9.4 Total Bilirubin 0.4 AST 67 H D ALT 55 H D Alkaline Phosphatase 70 Total Protein 8.3 H Albumin 4.4 Globulin 3.9 Albumin/Globulin Ratio 1.1 05/09/17 05/09/17 05/09/17 05:20 05:20 05:59 WBC 5.7 RBC 3.40 L Hgb 11.1 L Hct 31.8 L MCV 93.6 MCH 32.5 H MCHC 34.8 RDW 12.5 Plt Count 221 MPV Neut % (Auto) Lymph % (Auto) [place] % (Auto) Eos % (Auto) Baso % (Auto) Neut # (Auto) Lymph # (Auto) [place] # (Auto) Eos # (Auto) Baso # (Auto) Sodium 138 Potassium 3.5 L Chloride 101 Carbon Dioxide 27 Anion Gap 14 BUN 3 L Creatinine 0.6 L Est GFR ( Amer) > 60 Est GFR (Non-Af Amer) > 60 POC Glucose (mg/dL) 104 Random Glucose 116 H Calcium 8.6 Total Bilirubin AST ALT Alkaline Phosphatase Total Protein Albumin Globulin Albumin/Globulin Ratio Assessment & Plan (1) Sigmoid diverticulitis Assessment and Plan: Continue IV antibiotics Status: Acute (2) Essential (primary) hypertension Assessment and Plan: BP well controlled Status: Acute (3) Diabetes mellitus type II, controlled Status: Acute
[2017-05-09] MEDS: Pantoprazole 40 mg EC Tab PO SCH (08:48)
[2017-05-09] MEDS ORDERED: Enoxaparin 40 mg Syringe SC SCH (09:00)
[2017-05-09] MEDS ORDERED: Patient's Own Med (Cholecalciferol (Vitamin D3) [Vitamin D3] 5,000 unit) PO SCH (09:00)
--- NOTE | 2017-05-09 14:19 | CP.PCM.CON ---
<Brandee Baxter - Last Filed: 05/09/17 14:21> History of Present Illness - History of Present Illness History of Present Illness: GI Fellow PGY 4 Consult This is an 82 year old female with a past medical history significant for hypertension, hyperlipidemia, Type 2 DM, Diverticulitis who presents to the ED with the complaint of generalized abdominal pain, nausea without vomiting. The pain is mild to moderate, dull, crampy, constant. The patient was seen at [facility] [address] abdomen/pelvis revealing diverticulitis at that time and was discharged with Cipro/Flagyl.The patient now presents to [facility] ER and she had repeat CT scan of the abdomen which showed Acute sigmoid diverticulitis with multiple small micro perforations identified. The pt reports one similar episode many years ago that was treated with abx. Pt sees Dr. Giordano for GI as an outpt. Pt had a colonoscopy in 2011 that showed diverticulosis. Pt has chronic constipation and now N/V, diarrhea. ROS: A 12pt ROS was neg except as above PMHx: As stated in HPI PSHx: Denies FH: neg for colon cancer SH: denies drugs, alcohol, tobacco Past Patient History - Infectious Disease Hx of Infectious Diseases: None - Past Medical History & Family History Past Medical History?: Yes - Past Social History Smoking Status: Never Smoked - CARDIAC Hx Cardiac Disorders: Yes Hx Hypercholesterolemia: Yes Hx Hypertension: Yes - PULMONARY Hx Respiratory Disorders: No - NEUROLOGICAL Hx Neurological Disorder: No - HEENT Hx HEENT Problems: Yes Hx Cataracts: Yes - RENAL Hx Chronic Kidney Disease: No - ENDOCRINE/METABOLIC Hx Endocrine Disorders: Yes Hx Diabetes Mellitus Type 2: Yes - HEMATOLOGICAL/ONCOLOGICAL Hx Blood Disorders: No Hx Human Immunodeficiency Virus (HIV): No - INTEGUMENTARY Hx Dermatological Problems: No - MUSCULOSKELETAL/RHEUMATOLOGICAL Hx Musculoskeletal Disorders: No Hx Falls: No - GASTROINTESTINAL Hx Gastrointestinal Disorders: Yes Hx Diverticulitis: Yes Hx Gastritis: Yes - GENITOURINARY/GYNECOLOGICAL Hx Genitourinary Disorders: No Other/Comment: MISCARRIAGE X2 - PSYCHIATRIC Hx Psychophysiologic Disorder: No Hx Substance Use: No - SURGICAL HISTORY Hx Surgeries: Yes Hx Section: Yes (x1) Hx Cholecystectomy: Yes - ANESTHESIA Hx Anesthesia: Yes Hx Anesthesia Reactions: No Hx Malignant Hyperthermia: No Has any member of the family had a problem w/ anesthesia?: No Meds Allergies/Adverse Reactions: Allergies Allergy/AdvReac Type Severity Reaction Status Date / Time chocolate flavor Allergy HEADACHE Verified 05/09/17 15:22 iodine Allergy RASH Verified 05/05/15 21:53 msg Allergy HEADACHE Uncoded 05/09/17 15:22 yellow cheese Allergy HEADACHE Uncoded 05/09/17 15:22 - Medications Medications: Current Medications Al Hydrox/Mg Hydrox/Simethicone (Maalox Plus 30 Ml) 30 ml PO Q4 PRN PRN Reason: Indigestion / Heartburn Atorvastatin Calcium (Lipitor) 10 mg PO HS [facility] Last Admin: 05/08/17 22:34 Dose: Not Given Hydrochlorothiazide (Microzide) 12.5 mg PO DAILY [facility] Piperacillin Sod/Tazobactam (Sod 3.375 gm/ Sodium Chloride) 100 mls @ 100 mls/ hr IVPB Q6 [facility] PRN Reason: Protocol Last Admin: 05/09/17 09:33 Dose: 100 mls/hr Losartan Potassium (Cozaar) 50 mg PO DAILY [facility] Last Admin: 05/09/17 08:48 Dose: 50 mg Ondansetron HCl (Zofran Inj) 4 mg IVP Q6 PRN PRN Reason: Nausea/Vomiting Pantoprazole Sodium (Protonix Ec Tab) 40 mg PO DAILY [facility] Last Admin: 05/09/17 08:48 Dose: 40 mg Physical Exam - Constitutional Appears: Non-toxic, No Acute Distress - Eye Exam Eye Exam: EOMI, Normal appearance, PERRL - ENT Exam ENT Exam: Mucous Membranes Moist - Neck Exam Neck exam: Positive for: Normal Inspection - Respiratory Exam Respiratory Exam: NORMAL BREATHING PATTERN - GI/Abdominal Exam GI & Abdominal Exam: Normal Bowel Sounds, Soft, Tenderness. absent: Distended, Organomegaly - Neurological Exam Neurological exam: Alert, Oriented x3 - Psychiatric Exam Psychiatric exam: Normal Affect, Normal Mood - Skin Skin Exam: Dry, Intact, Normal Color, Warm Results - Vital Signs Recent Vital Signs: Last Vital Signs Temp 98.2 F 05/09/17 08:32 Pulse 72 05/09/17 08:32 Resp 20 05/09/17 08:32 BP 124/67 05/09/17 08:32 Pulse Ox 96 05/09/17 08:32 - Labs Result Diagrams: 05/09/17 05:20 05/09/17 05:20 Labs: Laboratory Results - last 24 hr 05/08/17 05/08/17 05/08/17 15:18 15:18 21:45 WBC 7.8 RBC 3.91 Hgb 12.6 Hct 36.8 MCV 94.1 MCH 32.2 H MCHC 34.2 RDW 12.5 Plt Count 247 MPV 7.8 Neut % (Auto) 72.6 Lymph % (Auto) 21.9 [place] % (Auto) 4.9 Eos % (Auto) 0.1 Baso % (Auto) 0.5 Neut # (Auto) 5.7 Lymph # (Auto) 1.7 [place] # (Auto) 0.4 Eos # (Auto) 0.0 Baso # (Auto) 0.0 Sodium 130 L Potassium 3.8 Chloride 89 L Carbon Dioxide 26 Anion Gap 19 BUN 6 L Creatinine 0.5 L Est GFR ( Amer) > 60 Est GFR (Non-Af Amer) > 60 POC Glucose (mg/dL) 112 H Random Glucose 123 H Calcium 9.4 Total Bilirubin 0.4 AST 67 H D ALT 55 H D Alkaline Phosphatase 70 Total Protein 8.3 H Albumin 4.4 Globulin 3.9 Albumin/Globulin Ratio 1.1 05/09/17 05/09/17 05/09/17 05:20 05:20 05:59 WBC 5.7 RBC 3.40 L Hgb 11.1 L Hct 31.8 L MCV 93.6 MCH 32.5 H MCHC 34.8 RDW 12.5 Plt Count 221 MPV Neut % (Auto) Lymph % (Auto) [place] % (Auto) Eos % (Auto) Baso % (Auto) Neut # (Auto) Lymph # (Auto) [place] # (Auto) Eos # (Auto) Baso # (Auto) Sodium 138 Potassium 3.5 L Chloride 101 Carbon Dioxide 27 Anion Gap 14 BUN 3 L Creatinine 0.6 L Est GFR ( Amer) > 60 Est GFR (Non-Af Amer) > 60 POC Glucose (mg/dL) 104 Random Glucose 116 H Calcium 8.6 Total Bilirubin AST ALT Alkaline Phosphatase Total Protein Albumin Globulin Albumin/Globulin Ratio 05/09/17 11:29 WBC RBC Hgb Hct MCV MCH MCHC RDW Plt Count MPV Neut % (Auto) Lymph % (Auto) [place] % (Auto) Eos % (Auto) Baso % (Auto) Neut # (Auto) Lymph # (Auto) [place] # (Auto) Eos # (Auto) Baso # (Auto) Sodium Potassium Chloride Carbon Dioxide Anion Gap BUN Creatinine Est GFR ( Amer) Est GFR (Non-Af Amer) POC Glucose (mg/dL) 119 H Random Glucose Calcium Total Bilirubin AST ALT Alkaline Phosphatase Total Protein Albumin Globulin Albumin/Globulin Ratio Assessment & Plan - Assessment and Plan (Free Text) Assessment: This is a 82yF presenting with LLQ abdominal pain. 1. Acute Diverticulitis with microperforations 2. Chronic constipation 3. Dyspepsia Plan: -Continue supportive care with pain control and antiemetics -Clear liquid diet, advance as tolerated -IV abx -IVF hydration -Blood cultures -Monitor for fever and WBC -Stool studies -Pepcid for GERD -Stool for HP -Will continue to follow closely <Khushbu Dejesus - Last Filed: 05/09/17 16:41> Meds - Medications Medications: Current Medications Al Hydrox/Mg Hydrox/Simethicone (Maalox Plus 30 Ml) 30 ml PO Q4 PRN PRN Reason: Indigestion / Heartburn Atorvastatin Calcium (Lipitor) 10 mg PO HS [facility] Last Admin: 05/08/17 22:34 Dose: Not Given Hydrochlorothiazide (Microzide) 12.5 mg PO DAILY [facility] Piperacillin Sod/Tazobactam (Sod 3.375 gm/ Sodium Chloride) 100 mls @ 100 mls/ hr IVPB Q6 [facility] PRN Reason: Protocol Last Admin: 05/09/17 09:33 Dose: 100 mls/hr Insulin Human Lispro (Humalog) 0 units SC ACHS [facility] PRN Reason: Protocol Lactobacillus Acidophilus (Bacid Acidophilus) 1 cap PO BID [facility] Losartan Potassium (Cozaar) 50 mg PO DAILY [facility] Last Admin: 05/09/17 08:48 Dose: 50 mg Ondansetron HCl (Zofran Inj) 4 mg IVP Q6 PRN PRN Reason: Nausea/Vomiting Pantoprazole Sodium (Protonix Ec Tab) 40 mg PO DAILY [facility] Last Admin: 05/09/17 08:48 Dose: 40 mg Results - Vital Signs Recent Vital Signs: Last Vital Signs Temp 98.2 F 05/09/17 08:32 Pulse 72 05/09/17 08:32 Resp 20 05/09/17 08:32 BP 124/67 05/09/17 08:32 Pulse Ox 96 05/09/17 08:32 - Labs Result Diagrams: 05/09/17 05:20 05/09/17 05:20 Labs: Laboratory Results - last 24 hr 05/08/17 05/09/17 05/09/17 21:45 05:20 05:20 WBC 5.7 RBC 3.40 L Hgb 11.1 L Hct 31.8 L MCV 93.6 MCH 32.5 H MCHC 34.8 RDW 12.5 Plt Count 221 Sodium 138 Potassium 3.5 L Chloride 101 Carbon Dioxide 27 Anion Gap 14 BUN 3 L Creatinine 0.6 L Est GFR ( Amer) > 60 Est GFR (Non-Af Amer) > 60 POC Glucose (mg/dL) 112 H Random Glucose 116 H Calcium 8.6 05/09/17 05/09/17 05/09/17 05:59 11:29 16:15 WBC RBC Hgb Hct MCV MCH MCHC RDW Plt Count Sodium Potassium Chloride Carbon Dioxide Anion Gap BUN Creatinine Est GFR ( Amer) Est GFR (Non-Af Amer) POC Glucose (mg/dL) 104 119 H 81 Random Glucose Calcium Attending/Attestation - Attestation I have personally seen and examined this patient.: Yes I have fully participated in the care of the patient.: Yes I have reviewed all pertinent clinical information: Yes Notes (Text): 05/09/17 16:29 Patient seen with GI fellow. This is a 82 yr old [place] F presenting with LLQ abdominal pain in setting of acute diverticulitis and microperforations. She has suffered from chronic constipation. Tolerating CLD. Continue supportive care with pain control and antiemetics and continue IV antibiotics. Hemodynamically stable. Trend for fever and WBC and send stool for H pylori. Will follow
--- NOTE | 2017-05-09 15:41 | CP.PCM.PN ---
Subjective - Date & Time of Evaluation Date of Evaluation: 05/09/17 Time of Evaluation: 14:00 - Subjective Subjective: Patient seen and examined. No diarrhea, no vomiting, no abdominal pain but still having nausea after taking clear liquid Objective - Vital Signs/Intake and Output Vital Signs (last 24 hours): Temp Pulse Resp BP Pulse Ox 98.2 F 72 20 124/67 96 05/09/17 08:32 05/09/17 08:32 05/09/17 08:32 05/09/17 08:32 05/09/17 08:32 - Medications Medications: Current Medications Al Hydrox/Mg Hydrox/Simethicone (Maalox Plus 30 Ml) 30 ml PO Q4 PRN PRN Reason: Indigestion / Heartburn Atorvastatin Calcium (Lipitor) 10 mg PO HS [facility] Last Admin: 05/08/17 22:34 Dose: Not Given Hydrochlorothiazide (Microzide) 12.5 mg PO DAILY [facility] Piperacillin Sod/Tazobactam (Sod 3.375 gm/ Sodium Chloride) 100 mls @ 100 mls/ hr IVPB Q6 [facility] PRN Reason: Protocol Last Admin: 05/09/17 09:33 Dose: 100 mls/hr Losartan Potassium (Cozaar) 50 mg PO DAILY [facility] Last Admin: 05/09/17 08:48 Dose: 50 mg Ondansetron HCl (Zofran Inj) 4 mg IVP Q6 PRN PRN Reason: Nausea/Vomiting Pantoprazole Sodium (Protonix Ec Tab) 40 mg PO DAILY [facility] Last Admin: 05/09/17 08:48 Dose: 40 mg - Labs Labs: 05/09/17 05:20 05/09/17 05:20 - Constitutional Appears: No Acute Distress - Head Exam Head Exam: ATRAUMATIC - Eye Exam Eye Exam: absent: Scleral icterus - ENT Exam ENT Exam: Mucous Membranes Moist - Neck Exam Neck Exam: absent: Meningismus - Respiratory Exam Respiratory Exam: absent: Rales, Rhonchi, Wheezes, Respiratory Distress - Cardiovascular Exam Cardiovascular Exam: REGULAR RHYTHM, +S1, +S2 - GI/Abdominal Exam GI & Abdominal Exam: Soft. absent: Tenderness - Rectal Exam Rectal Exam: Deferred - Neurological Exam Neurological Exam: Alert, Oriented x3 - Psychiatric Exam Psychiatric exam: Normal Affect - Skin Skin Exam: Dry, Intact Assessment and Plan - Assessment and Plan (Free Text) Assessment: 82 yo female with history of HTN, DM2, HLD and Diverticulosis was placed on observation because of one week duration of on and off abdominal pain, increased flatulence, feeling bloated, nausea and diarrhea. CT scan of abdomen showed acute sigmoid diverticulitis with multiple micro perforations. 1. Sigmoid Diverticulitis tolerating clear liquid although still complaining of feeling nauseous and bloated continue IV hydration continue IV Zosyn appreciate GI consult with Dr Dejesus 2. HTN BP stable continue HCTZ and Losartan 3. HLD continue statin 4. DM2 BS controlled without medication ACHS with low Lispro coverage HgA1C, BMP
--- NOTE | 2017-05-09 16:27 | CARD ---
APPROVED REPORT EKG Measurement Heart [id number] <Conclusion> Poor data quality, interpretation may be adversely affected Normal sinus rhythm Nonspecific T wave abnormality Abnormal ECG
[2017-05-09] MEDS: Lactobacillus Acidophilus 500 MU Cap PO SCH (16:33)
[2017-05-09] MEDS: Insulin Lispro (humaLOG) 100 Units/ml Inj SC SCH ×2 (16:34→22:00)
[2017-05-09 17:37] LABS: BLOOD UREA NITROGEN 3 mg/dl (7-17); CALCIUM 9.1 mg/dL (8.4-10.2); GFR AFRICAN-AMERICAN > 60; GFR NON-AFRICAN AMERICAN > 60
[2017-05-10] MEDS: Piperacillin/Tazobact 3.375 GM in Sodium Chloride 0.9% 100 ML IVPB SCH ×4 (04:57→21:19)
[2017-05-10] MEDS: Insulin Lispro (humaLOG) 100 Units/ml Inj SC SCH ×4 (07:06→22:18)
[2017-05-10 08:38] LABS: BASO % 0.8 % (0.0-2.0); BLOOD UREA NITROGEN 2 mg/dl (7-17); CALCIUM 9.3 mg/dL (8.4-10.2); EOS # 0.2 K/uL (0.0-0.7); EOS % 3.3 % (0.0-4.0); GFR AFRICAN-AMERICAN > 60; GFR NON-AFRICAN AMERICAN > 60; HEMOGLOBIN 12.4 g/dL (12.0-16.0); LYMPH # 1.5 K/uL (1.0-4.3); MEAN CELL VOLUME 95.3 fl (81.0-99.0); MEAN CORPUSCULAR HGB CONC 33.5 g/dL (33.0-37.0); MEAN PLATELET VOLUME 8.5 fl (7.2-11.7); MONO # 0.4 K/uL (0.0-0.8); MONO % 7.4 % (0.0-10.0); NEUT # 3.3 K/uL (1.8-7.0); NEUT % 60.5 % (50.0-75.0); NRBC % 0.1 % (0.0-0.0); RBC 3.88 Mil/uL (3.80-5.20); RED CELL DISTRIBUTION WIDTH 12.6 % (11.5-14.5); WHITE BLOOD COUNT 5.5 K/uL (4.8-10.8)
[2017-05-10] MEDS ORDERED: Simethicone 80 mg Chewtab PO PRN (09:12)
[2017-05-10] MEDS: Pantoprazole 40 mg EC Tab PO SCH (09:56)
[2017-05-10] MEDS: Lactobacillus Acidophilus 500 MU Cap PO SCH ×2 (09:58→17:37)
--- NOTE | 2017-05-10 11:51 | CP.PCM.PN ---
<Sahil,Brandee - Last Filed: 05/10/17 11:43> Subjective - Date & Time of Evaluation Date of Evaluation: 05/10/17 Time of Evaluation: 11:15 - Subjective Subjective: GI Fellow PGY4 Progress Note Pt seen and evaluated at bedside, doing better with improved abdominal pain, tolerating diet. +bm ROS: A 12pt ROS was negative except as above. Objective - Vital Signs/Intake and Output Vital Signs (last 24 hours): Temp Pulse Resp BP Pulse Ox 97.9 F 78 20 143/79 97 05/10/17 07:53 05/10/17 09:55 05/10/17 07:53 05/10/17 09:55 05/10/17 07:53 - Medications Medications: Current Medications Al Hydrox/Mg Hydrox/Simethicone (Maalox Plus 30 Ml) 30 ml PO Q4 PRN PRN Reason: Indigestion / Heartburn Atorvastatin Calcium (Lipitor) 10 mg PO HS [facility] Last Admin: 05/09/17 21:59 Dose: Not Given Hydrochlorothiazide (Microzide) 12.5 mg PO DAILY [facility] Last Admin: 05/10/17 09:55 Dose: 12.5 mg Piperacillin Sod/Tazobactam (Sod 3.375 gm/ Sodium Chloride) 100 mls @ 100 mls/ hr IVPB Q6 ASIF PRN Reason: Protocol Last Admin: 05/10/17 09:56 Dose: 100 mls/hr Insulin Human Lispro (Humalog) 0 units SC ACHS ASIF PRN Reason: Protocol Last Admin: 05/10/17 07:06 Dose: Not Given Lactobacillus Acidophilus (Bacid Acidophilus) 1 cap PO BID [facility] Last Admin: 05/10/17 09:58 Dose: 1 cap Losartan Potassium (Cozaar) 50 mg PO DAILY [facility] Last Admin: 05/10/17 09:55 Dose: 50 mg Ondansetron HCl (Zofran Inj) 4 mg IVP Q6 PRN PRN Reason: Nausea/Vomiting Last Admin: 05/09/17 17:41 Dose: 4 mg Pantoprazole Sodium (Protonix Ec Tab) 40 mg PO DAILY [facility] Last Admin: 05/10/17 09:56 Dose: 40 mg Simethicone (Mylicon Chew Tab) 80 mg PO TID PRN PRN Reason: Flatulence - Labs Labs: 05/10/17 06:30 05/10/17 06:30 - Constitutional Appears: Non-toxic, No Acute Distress - Head Exam Head Exam: ATRAUMATIC, NORMAL INSPECTION, NORMOCEPHALIC - Eye Exam Eye Exam: EOMI, Normal appearance, PERRL - ENT Exam ENT Exam: Mucous Membranes Moist - Neck Exam Neck Exam: Full ROM - Respiratory Exam Respiratory Exam: Clear to Ausculation Bilateral, NORMAL BREATHING PATTERN - Cardiovascular Exam Cardiovascular Exam: REGULAR RHYTHM - GI/Abdominal Exam GI & Abdominal Exam: Soft, Normal Bowel Sounds - Extremities Exam Extremities Exam: Full ROM, Normal Inspection - Back Exam Back Exam: NORMAL INSPECTION - Neurological Exam Neurological Exam: Alert, Awake, Oriented x3 - Psychiatric Exam Psychiatric exam: Normal Affect, Normal Mood - Skin Skin Exam: Dry, Intact, Normal Color, Warm Assessment and Plan - Assessment and Plan (Free Text) Assessment: This is a 82yF presenting with LLQ abdominal pain. 1. Acute Diverticulitis with microperforations 2. Chronic constipation 3. Dyspepsia Plan: -Continue supportive care with pain control and antiemetics -Advance diet as tolerated -IV abx, can change to po abx prior to discharge -IVF hydration -Blood cultures -Monitor for fever and WBC -Stool studies -Pepcid for GERD -Stool for HP -Pt okay for discharge home and can followup outpt with primary GI doctor <Khushbu Dejesus - Last Filed: 05/10/17 12:44> Objective - Vital Signs/Intake and Output Vital Signs (last 24 hours): Temp Pulse Resp BP Pulse Ox 97.9 F 78 20 143/79 97 05/10/17 07:53 05/10/17 09:55 05/10/17 07:53 05/10/17 09:55 05/10/17 07:53 - Medications Medications: Current Medications Al Hydrox/Mg Hydrox/Simethicone (Maalox Plus 30 Ml) 30 ml PO Q4 PRN PRN Reason: Indigestion / Heartburn Atorvastatin Calcium (Lipitor) 10 mg PO HS [facility] Last Admin: 05/09/17 21:59 Dose: Not Given Hydrochlorothiazide (Microzide) 12.5 mg PO DAILY [facility] Last Admin: 05/10/17 09:55 Dose: 12.5 mg Piperacillin Sod/Tazobactam (Sod 3.375 gm/ Sodium Chloride) 100 mls @ 100 mls/ hr IVPB Q6 ASIF PRN Reason: Protocol Last Admin: 05/10/17 09:56 Dose: 100 mls/hr Insulin Human Lispro (Humalog) 0 units SC ACHS ASIF PRN Reason: Protocol Last Admin: 05/10/17 07:06 Dose: Not Given Lactobacillus Acidophilus (Bacid Acidophilus) 1 cap PO BID [facility] Last Admin: 05/10/17 09:58 Dose: 1 cap Losartan Potassium (Cozaar) 50 mg PO DAILY [facility] Last Admin: 05/10/17 09:55 Dose: 50 mg Ondansetron HCl (Zofran Inj) 4 mg IVP Q6 PRN PRN Reason: Nausea/Vomiting Last Admin: 05/09/17 17:41 Dose: 4 mg Pantoprazole Sodium (Protonix Ec Tab) 40 mg PO DAILY [facility] Last Admin: 05/10/17 09:56 Dose: 40 mg Simethicone (Mylicon Chew Tab) 80 mg PO TID PRN PRN Reason: Flatulence - Labs Labs: 05/10/17 06:30 05/10/17 06:30 Attending/Attestation - Attestation I have personally seen and examined this patient.: Yes I have fully participated in the care of the patient.: Yes I have reviewed all pertinent clinical information, including history, physical exam and plan: Yes Notes (Text): 05/10/17 12:43 Patient seen with GI fellow. This is a 82 yr old Phillipino F presenting with LLQ abdominal pain in setting of acute diverticulitis and microperforations. She has suffered from chronic constipation. Tolerating CLD. Will advance as tolerated. Continue supportive care with pain control and antiemetics and continue IV antibiotics. Hemodynamically stable. Trend for fever and WBC and send stool for H pylori.
--- NOTE | 2017-05-10 12:01 | CP.PCM.PN ---
Subjective - Date & Time of Evaluation Date of Evaluation: 05/10/17 Time of Evaluation: 11:15 - Subjective Subjective: Patient was seen and examined. She reports no nausea after clear liquid diet this morning; did have some nausea yesterday evening however. C/o minimal tenderness to the LLQ. No fever, chills, headache, chest pain, vomiting, or diarrhea. Objective - Vital Signs/Intake and Output Vital Signs (last 24 hours): Temp Pulse Resp BP Pulse Ox 97.9 F 78 20 143/79 97 05/10/17 07:53 05/10/17 09:55 05/10/17 07:53 05/10/17 09:55 05/10/17 07:53 - Medications Medications: Current Medications Al Hydrox/Mg Hydrox/Simethicone (Maalox Plus 30 Ml) 30 ml PO Q4 PRN PRN Reason: Indigestion / Heartburn Atorvastatin Calcium (Lipitor) 10 mg PO HS [facility] Last Admin: 05/09/17 21:59 Dose: Not Given Hydrochlorothiazide (Microzide) 12.5 mg PO DAILY [facility] Last Admin: 05/10/17 09:55 Dose: 12.5 mg Piperacillin Sod/Tazobactam (Sod 3.375 gm/ Sodium Chloride) 100 mls @ 100 mls/ hr IVPB Q6 ASIF PRN Reason: Protocol Last Admin: 05/10/17 09:56 Dose: 100 mls/hr Insulin Human Lispro (Humalog) 0 units SC ACHS ASIF PRN Reason: Protocol Last Admin: 05/10/17 07:06 Dose: Not Given Lactobacillus Acidophilus (Bacid Acidophilus) 1 cap PO BID [facility] Last Admin: 05/10/17 09:58 Dose: 1 cap Losartan Potassium (Cozaar) 50 mg PO DAILY [facility] Last Admin: 05/10/17 09:55 Dose: 50 mg Ondansetron HCl (Zofran Inj) 4 mg IVP Q6 PRN PRN Reason: Nausea/Vomiting Last Admin: 05/09/17 17:41 Dose: 4 mg Pantoprazole Sodium (Protonix Ec Tab) 40 mg PO DAILY [facility] Last Admin: 05/10/17 09:56 Dose: 40 mg Simethicone (Mylicon Chew Tab) 80 mg PO TID PRN PRN Reason: Flatulence - Labs Labs: 05/10/17 06:30 05/10/17 06:30 - Additional Findings Additional findings: Physical exam: Constitutional- cooperative, awake, alert Head- NCAT, PERRL Eye- PERRL, EOMI ENT- normal exam, MMM. Neck- normal inspection, supple, no JVD Respiratory- CTAB, no wheezes rales rhonchi Cardiovascular- RRR, +S1, +S2 no MRG GI/Abdominal- + Tenderness to palpation of the LLQ, normal bowel sounds, soft, no mass, no hsm Skin- warm, dry Extremities Exam- normal capillary refill, normal inspection Neurological Exam- alert, awake, oriented Psych- normal mood, normal affect Assessment and Plan - Assessment and Plan (Free Text) Plan: ASSESSMENT/PLAN 82 yo female with history of HTN, DM2, HLD and Diverticulosis was placed on observation because of one week duration of on and off abdominal pain, increased flatulence, feeling bloated, nausea and diarrhea. CT scan of abdomen showed acute sigmoid diverticulitis with multiple micro perforations. 1) Recurrent sigmoid diverticulitis - no nausea today with clear liquids-> advance to full liquids today, if tolerating will try solids in AM - Continue IV hydration - Continue IV Zosyn - GI consultation with Dr. Dejesus - Blood culture negative x 24 hours - C. diff negative - Stool studies pending 2. Dyspepsia - Continue Maalox PRN - Protonix 40 mg po daily - Carafate 80 mg po TID PRN 3. HTN BP stable continue HCTZ and Losartan 4. HLD - continue statin 5. DM2 BS controlled without medication ACHS with low Lispro coverage HgA1C 6.8 5. Constipation - Chronic
[2017-05-11] MEDS: Piperacillin/Tazobact 3.375 GM in Sodium Chloride 0.9% 100 ML IVPB SCH ×2 (04:38→09:28)
[2017-05-11] MEDS: Insulin Lispro (humaLOG) 100 Units/ml Inj SC SCH ×2 (07:30→13:01)
[2017-05-11 07:58] VITALS: BP 107/66; PULSE 85; RESP 20; TEMP 98.4; O2SAT 100
--- NOTE | 2017-05-11 08:10 | CP.PCM.PN ---
Subjective - Date & Time of Evaluation Date of Evaluation: 05/11/17 Time of Evaluation: 08:08 - Subjective Subjective: PGY5 GI Fellow Progress Note Patient seen and examined bedside this morning. The patient states she is feeling better today with less pain. Does admit to continued loose stool when passing BM. No fever, chills. Tolerating breakfast without issue. 12 system ROS performed and negative except where stated. Objective - Vital Signs/Intake and Output Vital Signs (last 24 hours): Temp Pulse Resp BP Pulse Ox 98.4 F 85 20 107/66 100 05/11/17 07:58 05/11/17 07:58 05/11/17 07:58 05/11/17 07:58 05/11/17 07:58 - Medications Medications: Current Medications Al Hydrox/Mg Hydrox/Simethicone (Maalox Plus 30 Ml) 30 ml PO Q4 PRN PRN Reason: Indigestion / Heartburn Atorvastatin Calcium (Lipitor) 10 mg PO HS [facility] Last Admin: 05/10/17 21:21 Dose: 10 mg Hydrochlorothiazide (Microzide) 12.5 mg PO DAILY [facility] Last Admin: 05/10/17 09:55 Dose: 12.5 mg Piperacillin Sod/Tazobactam (Sod 3.375 gm/ Sodium Chloride) 100 mls @ 100 mls/ hr IVPB Q6 ASIF PRN Reason: Protocol Last Admin: 05/11/17 04:38 Dose: 100 mls/hr Insulin Human Lispro (Humalog) 0 units SC ACHS ASIF PRN Reason: Protocol Last Admin: 05/11/17 07:30 Dose: Not Given Lactobacillus Acidophilus (Bacid Acidophilus) 1 cap PO BID [facility] Last Admin: 05/10/17 17:37 Dose: 1 cap Losartan Potassium (Cozaar) 50 mg PO DAILY [facility] Last Admin: 05/10/17 09:55 Dose: 50 mg Ondansetron HCl (Zofran Inj) 4 mg IVP Q6 PRN PRN Reason: Nausea/Vomiting Last Admin: 05/09/17 17:41 Dose: 4 mg Pantoprazole Sodium (Protonix Ec Tab) 40 mg PO DAILY [facility] Last Admin: 05/10/17 09:56 Dose: 40 mg Simethicone (Mylicon Chew Tab) 80 mg PO TID PRN PRN Reason: Flatulence Last Admin: 05/10/17 15:40 Dose: 80 mg - Labs Labs: 05/10/17 06:30 05/10/17 06:30 - Constitutional Appears: Non-toxic, No Acute Distress - Eye Exam Eye Exam: EOMI, PERRL - ENT Exam ENT Exam: Mucous Membranes Moist - Respiratory Exam Respiratory Exam: Clear to Ausculation Bilateral. absent: Rales, Rhonchi, Wheezes - Cardiovascular Exam Cardiovascular Exam: RRR, +S1, +S2 - GI/Abdominal Exam GI & Abdominal Exam: Soft, Normal Bowel Sounds. absent: Distended, Firm, Guarding, Rigid, Tenderness, Organomegaly - Extremities Exam Extremities Exam: Normal Inspection. absent: Pedal Edema - Neurological Exam Neurological Exam: Alert, Awake, Oriented x3 - Psychiatric Exam Psychiatric exam: Normal Affect, Normal Mood - Skin Skin Exam: Dry, Warm Assessment and Plan - Assessment and Plan (Free Text) Assessment: Patient is an 10-yo female wt PMHx significant for HTN, HLD, DM2, diverticulosis/itis who presented with abdominal pain -Acute complicated diverticulitis with microperforation -Chronic idiopathic constipation -Dyspepsia Plan: -Continue supportive care -Coverage with IV Zosyn adequate for now; consider Cipro/Flagyl course as outpatient for total of 10 days -C diff negative -Patient will need to augment water/fiber supplementation as outpatient -Start Miralax 17g PO BID at home, titrate dose to 1BM/day -On Protonix 40mg PO QAMAC -If patient continues to have recurrent episodes of diverticulitis, consider elective surgical consultation -May benefit from outpatient colonoscopy 6-8 wks after resolution of symptoms -Advance diet as tolerated -Vitals stable; no leukocytosis -No further recommendations, OK for D/C from GI standpoint
[2017-05-11] MEDS: Lactobacillus Acidophilus 500 MU Cap PO SCH (08:16)
[2017-05-11] MEDS: Pantoprazole 40 mg EC Tab PO SCH (08:17)
--- NOTE | 2017-05-11 08:25 | CP.PCM.PN ---
Subjective - Date & Time of Evaluation Date of Evaluation: 05/11/17 Time of Evaluation: 08:05 - Subjective Subjective: Has had a comfortable night LLQ pain and tenderness have resolved No chills or fever No leucocytosis , Hb/HCT and PLTLT count normal Has had BMs during last 24 hrs Has tolerated oral feedings No LLQ tenderness now Will plan D/C if breakfast is tolerated Will arrange surgical consult as out pt. Objective - Vital Signs/Intake and Output Vital Signs (last 24 hours): Temp Pulse Resp BP Pulse Ox 98.4 F 85 20 107/66 100 05/11/17 07:58 05/11/17 08:17 05/11/17 07:58 05/11/17 08:17 05/11/17 07:58 - Medications Medications: Current Medications Al Hydrox/Mg Hydrox/Simethicone (Maalox Plus 30 Ml) 30 ml PO Q4 PRN PRN Reason: Indigestion / Heartburn Atorvastatin Calcium (Lipitor) 10 mg PO HS [facility] Last Admin: 05/10/17 21:21 Dose: 10 mg Hydrochlorothiazide (Microzide) 12.5 mg PO DAILY [facility] Last Admin: 05/11/17 08:17 Dose: 12.5 mg Piperacillin Sod/Tazobactam (Sod 3.375 gm/ Sodium Chloride) 100 mls @ 100 mls/ hr IVPB Q6 ASIF PRN Reason: Protocol Last Admin: 05/11/17 04:38 Dose: 100 mls/hr Insulin Human Lispro (Humalog) 0 units SC ACHS ASIF PRN Reason: Protocol Last Admin: 05/11/17 07:30 Dose: Not Given Lactobacillus Acidophilus (Bacid Acidophilus) 1 cap PO BID [facility] Last Admin: 05/11/17 08:16 Dose: 1 cap Losartan Potassium (Cozaar) 50 mg PO DAILY [facility] Last Admin: 05/11/17 08:17 Dose: 50 mg Ondansetron HCl (Zofran Inj) 4 mg IVP Q6 PRN PRN Reason: Nausea/Vomiting Last Admin: 05/09/17 17:41 Dose: 4 mg Pantoprazole Sodium (Protonix Ec Tab) 40 mg PO DAILY [facility] Last Admin: 05/11/17 08:17 Dose: 40 mg Simethicone (Mylicon Chew Tab) 80 mg PO TID PRN PRN Reason: Flatulence Last Admin: 05/10/17 15:40 Dose: 80 mg - Labs Labs: 05/10/17 06:30 05/10/17 06:30
--- NOTE | 2017-05-11 11:00 | CP.PCM.DIS ---
Provider - Provider Date of Admission: 05/09/17 13:46 Attending physician: Gomez Recinos DO Primary care physician: Dr Tyron Gayle Consults: Cardio: DR Gayle GI: Dr Dejesus Time Spent in preparation of Discharge (in minutes): 35 Diagnosis - Discharge Diagnosis (1) Acute diverticulitis Status: Acute (2) Diabetes mellitus type II, controlled Status: Chronic (3) Essential (primary) hypertension Status: Chronic Hospital Course - Lab Results Lab Results: Micro Results 05/08/17 21:50 Blood Blood Culture - Preliminary NO GROWTH AFTER 48 HOURS Most Recent Lab Values WBC 5.5 K/uL (4.8-10.8) 05/10/17 06:30 RBC 3.88 Mil/uL (3.80-5.20) 05/10/17 06:30 Hgb 12.4 g/dL (12.0-16.0) 05/10/17 06:30 Hct 37.0 % (34.0-47.0) 05/10/17 06:30 MCV 95.3 fl (81.0-99.0) 05/10/17 06:30 MCH 32.0 pg (27.0-31.0) H 05/10/17 06:30 MCHC 33.5 g/dL (33.0-37.0) 05/10/17 06:30 RDW 12.6 % (11.5-14.5) 05/10/17 06:30 Plt Count 247 K/uL (130-400) 05/10/17 06:30 MPV 8.5 fl (7.2-11.7) 05/10/17 06:30 Neut % (Auto) 60.5 % (50.0-75.0) 05/10/17 06:30 Lymph % (Auto) 28.0 % (20.0-40.0) 05/10/17 06:30 [place] % (Auto) 7.4 % (0.0-10.0) 05/10/17 06:30 Eos % (Auto) 3.3 % (0.0-4.0) 05/10/17 06:30 Baso % (Auto) 0.8 % (0.0-2.0) 05/10/17 06:30 Neut # (Auto) 3.3 K/uL (1.8-7.0) 05/10/17 06:30 Lymph # (Auto) 1.5 K/uL (1.0-4.3) 05/10/17 06:30 Pacific # (Auto) 0.4 K/uL (0.0-0.8) 05/10/17 06:30 Eos # (Auto) 0.2 K/uL (0.0-0.7) 05/10/17 06:30 Baso # (Auto) 0.0 K/uL (0.0-0.2) 05/10/17 06:30 Sodium 139 mmol/l (132-148) 05/10/17 06:30 Potassium 3.6 MMOL/L (3.6-5.0) 05/10/17 06:30 Chloride 97 mmol/L (98-107) L 05/10/17 06:30 Carbon Dioxide 29 mmol/L (22-30) 05/10/17 06:30 Anion Gap 17 (10-20) 05/10/17 06:30 BUN 2 mg/dl (7-17) L 05/10/17 06:30 Creatinine 0.7 mg/dl (0.7-1.2) 05/10/17 06:30 Est GFR ( Amer) > 60 05/10/17 06:30 Est GFR (Non-Af Amer) > 60 05/10/17 06:30 POC Glucose (mg/dL) 102 mg/dL (65-110) 05/11/17 05:41 Random Glucose 127 mg/dL (65-105) H 05/10/17 06:30 Hemoglobin A1c 6.8 % (4.2-6.5) H 05/09/17 16:30 Calcium 9.3 mg/dL (8.4-10.2) 05/10/17 06:30 Total Bilirubin 0.4 mg/dl (0.2-1.3) 05/08/17 15:18 AST 67 U/L (14-36) H D 05/08/17 15:18 ALT 55 U/L (9-52) H D 05/08/17 15:18 Alkaline Phosphatase 70 U/L (38-126) 05/08/17 15:18 Total Protein 8.3 G/DL (6.3-8.2) H 05/08/17 15:18 Albumin 4.4 g/dL (3.5-5.0) 05/08/17 15:18 Globulin 3.9 gm/dL (2.2-3.9) 05/08/17 15:18 Albumin/Globulin Ratio 1.1 (1.0-2.1) 05/08/17 15:18 Stool Leukocytes, Qual Negative (NEGATIVE) 05/09/17 17:08 C. difficile Ag & Toxin Negative (NEGATIVE) 05/09/17 16:30 - Hospital Course Hospital Course: 82 yo female with history of HTN, DM2, HLD and Diverticulosis came because of one week duration of on and off abdominal pain, increased flatulence, feeling bloated, nausea and diarrhea. CT scan of abdomen showed acute sigmoid diverticulitis with multiple micro perforations. 1) Recurrent sigmoid diverticulitis - IV hydration - received IV Zosyn - GI consultation with Dr. Dejesus- rec outpt Colonoscopy - 6 wks - Blood culture negative - C. diff negative - Stool studies : Negative H pylori, negative C diff, negative WBC -Surgical consult as outpt - abd pain now resolved, tolerating PO diet, will d/c pt home on PO Cipro and Flagyl a srec by GI 2. Dyspepsia - Continue Maalox PRN - Protonix 40 mg po daily - Carafate 80 mg po TID PRN 3. HTN BP stable continue HCTZ and Losartan 4. HLD - continue statin 5. DM2 BS controlled without medication ACHS with low Lispro coverage HgA1C 6.8 5. Constipation - Chronic - Mirals as rec by GI Discharge Exam - Head Exam Head Exam: ATRAUMATIC, NORMAL INSPECTION, NORMOCEPHALIC - Eye Exam Eye Exam: EOMI, Normal appearance, PERRL Pupil Exam: NORMAL ACCOMODATION - ENT Exam ENT Exam: Mucous Membranes Moist, Normal External Ear Exam - Neck Exam Neck exam: Full Rom - Respiratory Exam Respiratory Exam: NORMAL BREATHING PATTERN. absent: Respiratory Distress - Cardiovascular Exam Cardiovascular Exam: REGULAR RHYTHM, +S1, +S2 - GI/Abdominal Exam GI & Abdominal Exam: Normal Bowel Sounds, Soft. absent: Tenderness - Extremities Exam Extremities exam: full ROM, normal capillary refill, normal inspection, pedal pulses present - Back Exam Back exam: FULL ROM. absent: CVA tenderness (L), CVA tenderness (R) - Neurological Exam Neurological exam: Alert, CN II-XII Intact, Oriented x3, Reflexes Normal - Psychiatric Exam Psychiatric exam: Normal Affect, Normal Mood - Skin Skin Exam: Dry, Normal Color, Warm Discharge Plan - Discharge Medications Prescriptions: Ciprofloxacin HCl [Cipro] 500 mg PO BID #20 tablet hydroCHLOROthiazide [Microzide] 12.5 mg PO DAILY #30 cap Lactobacillus Acidophilus [Bacid Acidophilus] 1 cap PO BID #30 cap Losartan [Cozaar] 50 mg PO DAILY #30 tab metFORMIN [glucOPHAGE] 500 mg PO QPM #30 tab Metronidazole [Flagyl] 500 mg PO TID #30 tablet Pantoprazole [Protonix EC Tab] 40 mg PO DAILY #30 ect Polyethylene Glycol 3350 [Miralax] 17 gm PO DAILY #850 gm Rosuvastatin Calcium [Crestor] 5 mg PO HS #30 tablet Simethicone [Mylicon Chew Tab] 80 mg PO TID PRN #60 chew PRN Reason: Flatulence - Follow Up Plan Condition: GOOD Disposition: HOME/ ROUTINE Instructions: High Fiber Diet, Diverticulitis (DC) Additional Instructions: follow up with Dr Tyron Gayle in 1 week Pt would need Outpt Colonoscopy in [address] Dejesus in 2-3 weeks Surgical consult as outpt Referrals: Khushbu Dejesus MD [Medical Doctor] - Blake Gayle MD [Family Provider] -
== END 2017-05-11 15:45 | disposition home or self-care (01) | DRG 392 ==
LOC: H.ER 14:09 → H.ERHOLD 18:33 → INTOOBSV 18:33 → H.MEDSURG1 21:19 → OBSVTOIN 05-09 13:46
PROVIDERS: ADMIT Internal Medicine; ATTEND Internal Medicine
DX: K57.20 Diverticulitis of large intestine with perforation and abscess without bleeding (principal); E11.9 Type 2 diabetes mellitus without complications; E87.1 Hypo-osmolality and hyponatremia; E87.6 Hypokalemia; K21.9 Gastro-esophageal reflux disease without esophagitis; K59.04 Chronic idiopathic constipation; Z79.899 Other long term (current) drug therapy; Z90.49 Acquired absence of other specified parts of digestive tract; H26.9 Unspecified cataract; K29.70 Gastritis, unspecified, without bleeding; Z79.84 Long term (current) use of oral hypoglycemic drugs; E78.00 Pure hypercholesterolemia, unspecified; E78.5 Hyperlipidemia, unspecified; I10 Essential (primary) hypertension

== ENCOUNTER 2017-06-30 07:05 | Day surgery (SDC) | payer MEDICARE ==
[2017-06-30] MEDS ORDERED: Lactated Ringer's 500 ML IV ONE (08:00)
[2017-06-30] MEDS ORDERED: Propofol 10 mg/ml Inj (20 ML) ONE (09:25)
[2017-06-30 09:45] VITALS: TEMP 97.4; O2SAT 100
[2017-06-30 09:50] VITALS: BP 125/57; PULSE 67; RESP 18
== END 2017-06-30 11:40 | disposition home or self-care (01) ==
LOC: H.ENDO 07:05
PROVIDERS: ATTEND Internal Medicine Gastroenterology
DX: R10.32 Left lower quadrant pain (principal); E78.5 Hyperlipidemia, unspecified; E11.9 Type 2 diabetes mellitus without complications; I10 Essential (primary) hypertension; K64.8 Other hemorrhoids; K57.30 Diverticulosis of large intestine without perforation or abscess without bleeding; K30 Functional dyspepsia; K31.9 Disease of stomach and duodenum, unspecified; K44.9 Diaphragmatic hernia without obstruction or gangrene; K29.50 Unspecified chronic gastritis without bleeding
CPT/HCPCS: 43239; 45378; 82948; 88305; J2001; J2704; J7120

== ENCOUNTER 2017-11-16 10:49 | Inpatient (IN) | payer MEDICARE ==
[2017-11-16] MEDS ORDERED: Sodium Chloride 0.9% 1,000 ML IV STA (11:13)
--- NOTE | 2017-11-16 11:18 | ED PDOC ---
HPI: Abdomen Time Seen by Provider: 11/16/17 11:09 Chief Complaint (Provider): abdominal pain History Per: Patient History/Exam Limitations: no limitations Onset/Duration Of Symptoms: Days (x2) Current Symptoms Are (Timing): Still Present Location Of Pain/Discomfort: Other (lower) Associated Symptoms: Nausea, Other (dark stools). denies: Fever, Chills Additional Complaint(s): Jaja Carballo is an 82 year old female, with a past medical history of diverticulitis, who presents to the emergency department complaining of lower abdominal pain associated with nausea and dark stools onset for x2 days. Patient denies any fever, chills or other medical complaints. PMD: None provided. Past Medical History Reviewed: Historical Data, Nursing Documentation, Vital Signs Vital Signs: Last Vital Signs Temp 99.1 F 11/16/17 11:22 Pulse 82 11/16/17 11:22 Resp 20 11/16/17 11:22 BP 149/75 11/16/17 11:22 Pulse Ox 99 11/16/17 11:22 - Medical History PMH: Diabetes, Diverticulitis, Gastritis, HTN, Hypercholesterolemia Denies: HIV, Chronic Kidney Disease - Surgical History Surgical History: Cholecystectomy, - Family History Family History: States: Unknown Family Hx - Home Medications Home Medications: Ambulatory Orders Medication Instructions Recorded Losartan [Cozaar] 50 mg PO DAILY #30 tab 05/10/17 Rosuvastatin Calcium [Crestor] 5 mg PO HS #30 tablet 05/10/17 hydroCHLOROthiazide [Microzide] 12.5 mg PO DAILY #30 cap 05/10/17 metFORMIN [glucOPHAGE] 500 mg PO QPM #30 tab 05/10/17 - Allergies Allergies/Adverse Reactions: Allergies Allergy/AdvReac Type Severity Reaction Status Date / Time iodine Allergy Mild RASH Verified 06/30/17 08:06 chocolate flavor Allergy HEADACHE Verified 06/30/17 08:06 yellow cheese Allergy Mild HEADACHE Uncoded 06/30/17 08:06 msg Allergy HEADACHE Uncoded 06/30/17 08:06 Review of Systems ROS Statement: Except As Marked, All Systems Reviewed And Found Negative Constitutional: Negative for: Fever, Chills Gastrointestinal: Positive for: Nausea, Abdominal Pain (lower), Melena Physical Exam - Reviewed Nursing Documentation Reviewed: Yes Vital Signs Reviewed: Yes - Physical Exam Appears: Positive for: No Acute Distress Head Exam: Positive for: ATRAUMATIC, NORMOCEPHALIC Skin: Positive for: Normal Color, Warm, Dry Eye Exam: Positive for: Normal appearance, EOMI, PERRL Neck: Positive for: Painless ROM Cardiovascular/Chest: Positive for: Regular Rate, Rhythm. Negative for: Murmur Respiratory: Positive for: Normal Breath Sounds. Negative for: Respiratory Distress Gastrointestinal/Abdominal: Positive for: Soft, Tenderness (to lower quadrants bilaterally). Negative for: Mass, Guarding, Rebound Back: Positive for: Normal Inspection. Negative for: L CVA Tenderness, R CVA Tenderness Extremity: Positive for: Normal ROM (upper and lower extremities). Negative for : Deformity, Swelling Neurologic/Psych: Positive for: Alert, Oriented. Negative for: Motor/Sensory Deficits - Laboratory Results Result Diagrams: 11/16/17 11:45 11/16/17 11:45 Medical Decision Making Medical Decision Making: Time: 11:09 Initial Plan: --VBG Shock Panel --ABD & Pelvis w/o PO or IV Contrast [CT] --CMP --Urine dipstick --CBC w/ differential --Bentyl 10 mg PO --Blood culture --Reevaluation ----- Scribe Attestation: Documented by Chaim Peng, acting as a scribe for Sang Barrett MD. Provider Scribe Attestation: All medical record entries made by the Scribe were at my direction and personally dictated by me. I have reviewed the chart and agree that the record accurately reflects my personal performance of the history, physical exam, medical decision making, and the department course for this patient. I have also personally directed, reviewed, and agree with the discharge instructions and disposition. Disposition - Clinical Impression Clinical Impression: Acute diverticulitis - Patient ED Disposition Is Patient to be Admitted: Yes - Disposition Disposition Time: 13:35 Condition: FAIR - Pt Status Changed To: Hospital Disposition Of: Inpatient - Admit Certification Admit to Inpatient:: After my assessment, the patient will require hospitalization for at least two midnights. This is because of the severity of symptoms shown, intensity of services needed, and/or the medical risk in this patient being treated as an outpatient. - POA Present On Arrival: None
[2017-11-16 11:52] LABS: VENOUS BLOOD GAS PCO2 48 mmHg (40-60); VENOUS BLOOD GAS PO2 26 mm/Hg (30-55)
[2017-11-16 11:54] LABS: BASO % 0.5 % (0.0-2.0); EOS % 0.1 % (0.0-4.0); HEMOGLOBIN 12.2 g/dL (12.0-16.0); LYMPH % 13.3 % (20.0-40.0); MEAN CELL VOLUME 95.7 fl (81.0-99.0); MEAN CORPUSCULAR HGB CONC 33.5 g/dL (33.0-37.0); MEAN PLATELET VOLUME 8.7 fl (7.2-11.7); MONO # 0.4 K/uL (0.0-0.8); MONO % 5.2 % (0.0-10.0); NEUT # 6.1 K/uL (1.8-7.0); NEUT % 80.9 % (50.0-75.0); RBC 3.8 Mil/uL (3.80-5.20); RED CELL DISTRIBUTION WIDTH 12.7 % (11.5-14.5); WHITE BLOOD COUNT 7.6 K/uL (4.8-10.8)
[2017-11-16 12:05] LABS: ALBUMIN 4.3 g/dL (3.5-5.0); ALT/SGPT 33 U/L (9-52); AST/SGOT 41 U/L (14-36); BLOOD UREA NITROGEN 6 mg/dl (7-17); CALCIUM 9.4 mg/dL (8.4-10.2); GFR NON-AFRICAN AMERICAN > 60
--- NOTE | 2017-11-16 13:22 | CT ---
Date of service: 11/16/2017 PROCEDURE: CT Abdomen and Pelvis without intravenous contrast HISTORY: r/o kidney stone COMPARISON: Noncontrast abdomen pelvis CT 05/08/2017. TECHNIQUE: Helical CT of the abdomen and pelvis was performed without oral or intravenous contrast as per referring physician request. Coronal and sagittal reformats were generated. Contrast dose: None Radiation dose: Total exam DLP = 222.57 mGy-cm. This CT exam was performed using one or more of the following dose reduction techniques: Automated exposure control, adjustment of the mA and/or kV according to patient size, and/or use of iterative reconstruction technique. FINDINGS: LOWER THORAX: Unremarkable. LIVER: Unremarkable. No gross lesion or ductal dilatation. GALLBLADDER AND BILE DUCTS: Prior cholecystectomy reiterated. PANCREAS: Unremarkable. No gross lesion or ductal dilatation. SPLEEN: Unremarkable. ADRENALS: Unremarkable. No mass. KIDNEYS AND URETERS: No radiodense urolithiasis, perinephric fluid collection or obstructive uropathy is appreciate bilaterally. The bilateral ureters appear normal caliber overall. VASCULATURE: Unremarkable. No aortic aneurysm. BOWEL: Sigmoid diverticular change are identified without definite local pericolic reaction which appear has apparently resolved in the interval. Thickening of the affected sigmoid segment remains difficult to exclude given collapse of the bowel segment and lack of oral contrast in this exam. Underlying lesion is not completely excluded and consideration of lower endoscopy should be considered particularly if the patient is symptomatic here. The stomach is collapsed and not well evaluated. APPENDIX: Not identified once again. No CT evidence of appendicitis. PERITONEUM: Unremarkable. No free fluid. No free air. LYMPH NODES: Unremarkable. No enlarged lymph nodes. BLADDER: Unremarkable. REPRODUCTIVE: Unremarkable. BONES: Scoliotic lumbar spinal deformity again evident as well as multilevel lumbar spondylosis. OTHER FINDINGS: None. IMPRESSION: 1. No radiodense urolithiasis, perinephric fluid collection or obstructive uropathy is appreciate bilaterally. The bilateral ureters appear normal caliber overall. 2. Sigmoid diverticulosis with mural thickening but no pericholecystic fluid collection. This may reflect chronic inflammatory changes. Underlying lesion not excluded. Follow-up lower endoscopy may be helpful for better characterization of this pattern than this enhanced CT exam. 3. Prior cholecystectomy reiterated.
[2017-11-16] MEDS ORDERED: Piperacillin/Tazobact 3.375 GM in Sodium Chloride 0.9% 100 ML IVPB STA (13:27)
[2017-11-16] MEDS ORDERED: Piperacillin/Tazobact 3.375 gm Inj IVPB ONE (14:15)
[2017-11-16] MEDS ORDERED: Iohexol 240 (50 ml) PO ONE (14:54)
--- NOTE | 2017-11-16 15:53 | CP.PCM.CON ---
<Neto Damon - Last Filed: 11/16/17 16:07> History of Present Illness - History of Present Illness History of Present Illness: PGY-4 GI Fellow Consult Note Pt is an 82 year old female with HTN, HLD, DM2, Diverticulitis who presents to the ED with the complaint of abdominal pain. The pain in described as constant, dull lower quadrant pain, non-radiating, worse in left lower quadrant over the last two days. Associated symptoms include nausea without emesis and loose dark green stools. She states this pain is similar to her last episode of diverticulitis in April 2017. She denied any weight loss, hematochezia or melena. After the April 2017 episode, she had f/u endoscopy with [facility] 06/30/17 with recto-sig diverticulosis associated with colonic narrowing and EGD 06/30/17 with HH, gastritis with resected cystic polyp. 12 point ROS negative other than stated above MHx: See above SurgHx: CCx Meds: Reviewed in MAR/Chart FamHx: neg for colon cancer SocHx: denies drugs, alcohol, tobacco All: iodine and other reviewed Past Patient History - Infectious Disease Hx of Infectious Diseases: None - Past Medical History & Family History Past Medical History?: Yes - Past Social History Smoking Status: Never Smoked - CARDIAC Hx Cardiac Disorders: Yes - PULMONARY Hx Respiratory Disorders: No - NEUROLOGICAL Hx Neurological Disorder: No - HEENT Hx HEENT Problems: Yes Hx Cataracts: Yes - RENAL Hx Chronic Kidney Disease: No - ENDOCRINE/METABOLIC Hx Endocrine Disorders: Yes - HEMATOLOGICAL/ONCOLOGICAL Hx Human Immunodeficiency Virus (HIV): No - INTEGUMENTARY Hx Dermatological Problems: No - MUSCULOSKELETAL/RHEUMATOLOGICAL Hx Musculoskeletal Disorders: No Hx Falls: No - GASTROINTESTINAL Hx Diverticulitis: Yes Hx Gastritis: Yes - GENITOURINARY/GYNECOLOGICAL Hx Genitourinary Disorders: No Other/Comment: MISCARRIAGE X2 - PSYCHIATRIC Hx Psychophysiologic Disorder: No Hx Substance Use: No - SURGICAL HISTORY Hx Cholecystectomy: Yes - ANESTHESIA Hx Anesthesia: Yes Hx Anesthesia Reactions: No Hx Malignant Hyperthermia: No Meds Allergies/Adverse Reactions: Allergies Allergy/AdvReac Type Severity Reaction Status Date / Time iodine Allergy Mild RASH Verified 06/30/17 08:06 chocolate flavor Allergy HEADACHE Verified 06/30/17 08:06 yellow cheese Allergy Mild HEADACHE Uncoded 06/30/17 08:06 msg Allergy HEADACHE Uncoded 06/30/17 08:06 - Medications Medications: Current Medications Home Med (Magnesium Oxide [Magnesium]) 250 mg PO DAILY ASIF Home Med (Metformin Er [Glucophage Xr]) 500 mg PO DAILY ASIF Home Med (Rosuvastatin Calcium [Crestor]) 5 mg PO HS ASIF Sodium Chloride (Sodium Chloride 0.9%) 1,000 mls @ 100 mls/hr IV .Q10H STA Stop: 11/16/17 21:12 Last Admin: 11/16/17 11:31 Dose: 100 mls/hr Losartan Potassium (Cozaar) 50 mg PO DAILY ASIF Pantoprazole Sodium (Protonix Ec Tab) 40 mg PO DAILY ASIF Physical Exam - Constitutional Appears: Well, Non-toxic, No Acute Distress - Head Exam Head Exam: ATRAUMATIC, NORMAL INSPECTION - Eye Exam Eye Exam: EOMI. absent: Conjunctival injection, Scleral icterus - ENT Exam ENT Exam: Mucous Membranes Dry. absent: Mucous Membranes Moist, Normal External Ear Exam - Respiratory Exam Respiratory Exam: Clear to Auscultation Bilateral, NORMAL BREATHING PATTERN. absent: Accessory Muscle Use, Wheezes - Cardiovascular Exam Cardiovascular Exam: REGULAR RHYTHM, RRR - GI/Abdominal Exam GI & Abdominal Exam: Normal Bowel Sounds, Soft, Tenderness (in lower quads, LLQ most without guarding). absent: Bruit, Diminished Bowel Sounds, Distended, Firm , Guarding, Hernia, Hyperactive Bowel Sounds, Mass, Organomegaly, Pulsatile Mass , Rebound, Rigid - Extremities Exam Extremities exam: Positive for: normal inspection. Negative for: pedal edema - Neurological Exam Neurological exam: Alert, CN II-XII Intact, Oriented x3 - Psychiatric Exam Psychiatric exam: Normal Affect, Normal Mood - Skin Skin Exam: Normal Color, Warm Results - Vital Signs Recent Vital Signs: Last Vital Signs Temp 97.8 F 11/16/17 14:20 Pulse 20 L 11/16/17 15:02 Resp 20 11/16/17 15:02 BP 145/72 11/16/17 14:20 Pulse Ox 99 11/16/17 14:20 - Labs Result Diagrams: 11/16/17 11:45 11/16/17 11:45 Labs: Laboratory Results - last 24 hr 11/16/17 11/16/17 11/16/17 11:45 11:45 11:45 WBC 7.6 RBC 3.80 Hgb 12.2 Hct 36.4 MCV 95.7 MCH 32.0 H MCHC 33.5 RDW 12.7 Plt Count 187 MPV 8.7 Neut % (Auto) 80.9 H Lymph % (Auto) 13.3 L [place] % (Auto) 5.2 Eos % (Auto) 0.1 Baso % (Auto) 0.5 Neut # (Auto) 6.1 Lymph # (Auto) 1.0 [place] # (Auto) 0.4 Eos # (Auto) 0.0 Baso # (Auto) 0.0 pO2 26 L VBG pH 7.40 VBG pCO2 48 VBG HCO3 26.7 VBG Total CO2 31.2 H VBG O2 Sat (Calc) 51.9 VBG Base Excess 4.0 H VBG Potassium 3.6 Sodium 132.0 135 Chloride 98.0 96 L Glucose 118 H Lactate 1.0 FiO2 21.0 Potassium 3.6 Carbon Dioxide 29 Anion Gap 14 BUN 6 L Creatinine 0.6 L Est GFR ( Amer) > 60 Est GFR (Non-Af Amer) > 60 Random Glucose 112 H Calcium 9.4 Total Bilirubin 0.3 AST 41 H D ALT 33 Alkaline Phosphatase 88 Total Protein 8.4 H Albumin 4.3 Globulin 4.1 H Albumin/Globulin Ratio 1.0 Venous Blood Potassium 3.6 Assessment & Plan - Assessment and Plan (Free Text) Assessment: 82 yo F with h/o diverticulitis, DM2, HTN, HLD presenting with abdominal pain. # Recurrent diverticulitis: Last episode in April 2017 with microperfs. Pt would qualify from surgical intervention, but given advanced age would need to discuss risks and benefits. [facility]Y 06/30/17 with recto-sig diverticulosis associated with colonic narrowing. Plan: - Agree with Pip/Tazo - Liquid diet as tolerated - CT with PO/IV contrast, primary team aware of contrast allergy --- Monitor patient closely for allergic reaction (pt states hives) - Surgical Consult Thank you for the consult, will continue to follow. Pt discussed with Dr. Dejesus. Please see attestation for further recs/changes. <Khushbu Dejesus - Last Filed: 11/17/17 13:04> Meds - Medications Medications: Current Medications Atorvastatin Calcium (Lipitor) 10 mg PO HS [facility] Last Admin: 11/16/17 21:26 Dose: Not Given Piperacillin Sod/Tazobactam (Sod 3.375 gm/ Sodium Chloride) 100 mls @ 100 mls/ hr IVPB Q6 ASIF PRN Reason: Protocol Last Admin: 11/17/17 09:13 Dose: 100 mls/hr Potassium Chloride/Dextrose/Sod Cl (Potassium Chl 20 Meq In D5-1/2ns) 1,000 mls @ 100 mls/hr IV .Q10H [facility] Stop: 11/18/17 07:30 Losartan Potassium (Cozaar) 50 mg PO DAILY [facility] Last Admin: 11/17/17 09:13 Dose: 50 mg Metformin HCl (Glucophage) 250 mg PO BIDWM [facility] Last Admin: 11/16/17 18:26 Dose: Not Given Ondansetron HCl (Zofran Inj) 4 mg IVP Q6 PRN PRN Reason: Nausea/Vomiting Last Admin: 11/17/17 02:57 Dose: 4 mg Pantoprazole Sodium (Protonix Ec Tab) 40 mg PO DAILY [facility] Last Admin: 11/17/17 09:13 Dose: Not Given Results - Vital Signs Recent Vital Signs: Last Vital Signs Temp 98.3 F 11/17/17 08:27 Pulse 69 11/17/17 08:27 Resp 18 11/17/17 08:27 BP 131/62 11/17/17 08:27 Pulse Ox 98 11/17/17 08:27 - Labs Result Diagrams: 11/16/17 11:45 11/16/17 11:45 Labs: Laboratory Results - last 24 hr 11/16/17 11/16/17 11/17/17 15:53 21:45 05:29 POC Glucose (mg/dL) 118 H 91 62 L 11/17/17 11/17/17 07:36 11:24 POC Glucose (mg/dL) 210 H 93 Attending/Attestation - Attestation I have personally seen and examined this patient.: Yes I have fully participated in the care of the patient.: Yes I have reviewed all pertinent clinical information: Yes Notes (Text): 11/17/17 13:03 This is a 82 yo F with h/o diverticulitis - 3 episodes, DM2, HTN, HLD presenting with abdominal pain which is after having hard stools at home for few days and not taking stool softeners. In April with microperforation s/p colonoscopy in June that showed significant colonic narrowing from edema is sigmoid colon but no mass lesions, able to traverse and finish colonoscopy. Will continue antibiotics and get surgical consult
--- NOTE | 2017-11-16 15:59 | CP.PCM.CON ---
<Yogesh Chavarria - Last Filed: 11/16/17 16:21> History of Present Illness - History of Present Illness History of Present Illness: General Surgery Consult Re: Recurrent diverticulitis HPI: 82F presented to ED complaining of constant lower abdominal pain. Pain is dull and non-radiating. Says it became worse yesterday after eating. She began having this problem 6 months prior (05/08/17) and says the pain has not totally resolved since then. + nausea yesterday with small loose dark green stools. Last BM this morning. Denies headache, fever, chills, SOB, chest pain, weight loss, dysuria, hematochezia or melena. She had a lower GI scope 06/30/17 with descending colon to recto-sig diverticulosis with some narrowing in the recto- sigmoid area. PMH: HTN, HLD, DM2, Diverticulitis, Gastritis, Migraines PSH: , lap cholecystectomy FH: non-contributory SH: Denies tobacco, EtOH, and drug use. All: Iodine (Hives) and others reviewed Meds: See MAR Review of Systems - Review of Systems All systems: reviewed and no additional remarkable complaints except (as per HPI ) Past Patient History - Infectious Disease Hx of Infectious Diseases: None - Past Medical History & Family History Past Medical History?: Yes - Past Social History Smoking Status: Never Smoked - CARDIAC Hx Cardiac Disorders: Yes - PULMONARY Hx Respiratory Disorders: No - NEUROLOGICAL Hx Neurological Disorder: No - HEENT Hx HEENT Problems: Yes Hx Cataracts: Yes - RENAL Hx Chronic Kidney Disease: No - ENDOCRINE/METABOLIC Hx Endocrine Disorders: Yes - HEMATOLOGICAL/ONCOLOGICAL Hx Human Immunodeficiency Virus (HIV): No - INTEGUMENTARY Hx Dermatological Problems: No - MUSCULOSKELETAL/RHEUMATOLOGICAL Hx Musculoskeletal Disorders: No Hx Falls: No - GASTROINTESTINAL Hx Diverticulitis: Yes Hx Gastritis: Yes - GENITOURINARY/GYNECOLOGICAL Hx Genitourinary Disorders: No Other/Comment: MISCARRIAGE X2 - PSYCHIATRIC Hx Psychophysiologic Disorder: No Hx Substance Use: No - SURGICAL HISTORY Hx Cholecystectomy: Yes - ANESTHESIA Hx Anesthesia: Yes Hx Anesthesia Reactions: No Hx Malignant Hyperthermia: No Meds Allergies/Adverse Reactions: Allergies Allergy/AdvReac Type Severity Reaction Status Date / Time iodine Allergy Mild RASH Verified 06/30/17 08:06 chocolate flavor Allergy HEADACHE Verified 06/30/17 08:06 yellow cheese Allergy Mild HEADACHE Uncoded 06/30/17 08:06 msg Allergy HEADACHE Uncoded 06/30/17 08:06 - Medications Medications: Current Medications Home Med (Magnesium Oxide [Magnesium]) 250 mg PO DAILY ASIF Home Med (Metformin Er [Glucophage Xr]) 500 mg PO DAILY ASIF Home Med (Rosuvastatin Calcium [Crestor]) 5 mg PO HS ASIF Sodium Chloride (Sodium Chloride 0.9%) 1,000 mls @ 100 mls/hr IV .Q10H STA Stop: 11/16/17 21:12 Last Admin: 11/16/17 11:31 Dose: 100 mls/hr Losartan Potassium (Cozaar) 50 mg PO DAILY ASIF Pantoprazole Sodium (Protonix Ec Tab) 40 mg PO DAILY ASIF Physical Exam - Constitutional Appears: Non-toxic, No Acute Distress - Head Exam Head Exam: ATRAUMATIC, NORMOCEPHALIC - Eye Exam Eye Exam: EOMI. absent: Scleral icterus - ENT Exam ENT Exam: Mucous Membranes Moist Additional comments: trachea midline - Neck Exam Neck exam: Positive for: Full Rom. Negative for: Tenderness - Respiratory Exam Respiratory Exam: NORMAL BREATHING PATTERN. absent: Respiratory Distress - Cardiovascular Exam Cardiovascular Exam: RRR, +S1, +S2 - GI/Abdominal Exam GI & Abdominal Exam: Soft, Tenderness (in suprapubic region). absent: Firm, Guarding, Hernia, Rebound, Rigid Additional comments: Inflamed subxiphoid scar from lap cholecystectomy, Mild TTP - Rectal Exam Rectal Exam: NORMAL INSPECTION (normal tone). absent: Bloody Stool, Fecal Impaction - Extremities Exam Extremities exam: Positive for: pedal pulses present. Negative for: calf tenderness, pedal edema - Back Exam Back exam: absent: CVA tenderness (L), CVA tenderness (R) - Neurological Exam Neurological exam: Alert, Oriented x3 - Skin Skin Exam: Dry, Warm Results - Vital Signs Recent Vital Signs: Last Vital Signs Temp 97.8 F 11/16/17 14:20 Pulse 20 L 11/16/17 15:02 Resp 20 11/16/17 15:02 BP 145/72 11/16/17 14:20 Pulse Ox 99 11/16/17 14:20 - Labs Result Diagrams: 11/16/17 11:45 11/16/17 11:45 Labs: Laboratory Results - last 24 hr 11/16/17 11/16/17 11/16/17 11:45 11:45 11:45 WBC 7.6 RBC 3.80 Hgb 12.2 Hct 36.4 MCV 95.7 MCH 32.0 H MCHC 33.5 RDW 12.7 Plt Count 187 MPV 8.7 Neut % (Auto) 80.9 H Lymph % (Auto) 13.3 L [place] % (Auto) 5.2 Eos % (Auto) 0.1 Baso % (Auto) 0.5 Neut # (Auto) 6.1 Lymph # (Auto) 1.0 [place] # (Auto) 0.4 Eos # (Auto) 0.0 Baso # (Auto) 0.0 pO2 26 L VBG pH 7.40 VBG pCO2 48 VBG HCO3 26.7 VBG Total CO2 31.2 H VBG O2 Sat (Calc) 51.9 VBG Base Excess 4.0 H VBG Potassium 3.6 Sodium 132.0 135 Chloride 98.0 96 L Glucose 118 H Lactate 1.0 FiO2 21.0 Potassium 3.6 Carbon Dioxide 29 Anion Gap 14 BUN 6 L Creatinine 0.6 L Est GFR ( Amer) > 60 Est GFR (Non-Af Amer) > 60 Random Glucose 112 H Calcium 9.4 Total Bilirubin 0.3 AST 41 H D ALT 33 Alkaline Phosphatase 88 Total Protein 8.4 H Albumin 4.3 Globulin 4.1 H Albumin/Globulin Ratio 1.0 Venous Blood Potassium 3.6 - Imaging and Cardiology CT scan - abdomen Status: Image reviewed by me, Report reviewed by me Assessment & Plan - Assessment and Plan (Free Text) Assessment: 82F with sigmoid diverticulosis with segment of narrowing Plan: NPO, IVF Continue IV abx Analgesia PRN Zofran PRN Serial abdominal exams Discussed Risks and benefits of surgical intervention as well as nonoperative management. No plans for immediate surgery at this time. Pt would like to discuss with her before she make a decision. Follow up in the office as an outpatient if pt would want the surgery. Upon discharge, pt will need to follow a high fiber diet with stool softener and bulking agent to help prevent further episodes. Will follow. D/W Dr. Jame Chavarria PGY4 <Jay Kilgore - Last Filed: 11/18/17 15:54> Results - Vital Signs Recent Vital Signs: Last Vital Signs Temp 97.7 F 11/18/17 08:36 Pulse 60 11/18/17 09:45 Resp 20 11/18/17 08:36 BP 137/77 11/18/17 09:45 Pulse Ox 99 11/18/17 08:36 - Labs Result Diagrams: 11/16/17 11:45 11/16/17 11:45 Labs: Laboratory Results - last 24 hr 11/17/17 11/17/17 11/18/17 16:33 21:41 05:20 POC Glucose (mg/dL) 146 H 128 H 140 H 11/18/17 11:22 POC Glucose (mg/dL) 124 H Assessment & Plan - Assessment and Plan (Free Text) Plan: I personally saw and examined the patient with the resident staff, reviewed the available diagnostic images and reports. and agree with the above assessment and plan. 82 F second episode of uncomplicated sigmoid diverticulitis in last 6 months. Inflamed sigmoid diverticulits without perforation/abscess on CT scan. HD stable. Abd soft, focal suprapubic tenderness, no peritonitis. Cont. IV abx, NPO until anorexia, pain and tenderness minimal /resolve.
[2017-11-16] MEDS: Piperacillin/Tazobact 3.375 GM in Sodium Chloride 0.9% 100 ML IVPB SCH (21:22)
[2017-11-17] MEDS: Piperacillin/Tazobact 3.375 GM in Sodium Chloride 0.9% 100 ML IVPB SCH ×4 (03:02→21:50)
[2017-11-17] MEDS ORDERED: Dextrose 50% SYRINGE Inj (50 ml) IVP ONE (06:49)
--- NOTE | 2017-11-17 07:17 | CP.PCM.PN ---
<Neto Daomn - Last Filed: 11/17/17 08:16> Subjective - Date & Time of Evaluation Date of Evaluation: 11/17/17 Time of Evaluation: 07:30 - Subjective Subjective: PGY-4 GI Fellow Prog Note Pt lying in bed when seen this AM. States a little dizzy due to low BS from being NPO. Otherwise, states abd pain/cramping unchanged. Reports similar BMs to prior with a few loose, dark green stools. 5 point ROS negative other than stated above Objective - Vital Signs/Intake and Output Vital Signs (last 24 hours): Temp Pulse Resp BP Pulse Ox 97.7 F 69 19 120/59 L 97 11/17/17 00:00 11/17/17 00:00 11/17/17 00:00 11/17/17 00:00 11/17/17 00:00 - Medications Medications: Current Medications Atorvastatin Calcium (Lipitor) 10 mg PO HS [facility] Last Admin: 11/16/17 21:26 Dose: Not Given Famotidine (Pepcid) 20 mg PO BID [facility] Last Admin: 11/17/17 03:51 Dose: 20 mg Piperacillin Sod/Tazobactam (Sod 3.375 gm/ Sodium Chloride) 100 mls @ 100 mls/ hr IVPB Q6 ASIF PRN Reason: Protocol Last Admin: 11/17/17 03:02 Dose: 100 mls/hr Losartan Potassium (Cozaar) 50 mg PO DAILY [facility] Metformin HCl (Glucophage) 250 mg PO BIDWM [facility] Last Admin: 11/16/17 18:26 Dose: Not Given Ondansetron HCl (Zofran Inj) 4 mg IVP Q6 PRN PRN Reason: Nausea/Vomiting Last Admin: 11/17/17 02:57 Dose: 4 mg Pantoprazole Sodium (Protonix Ec Tab) 40 mg PO DAILY [facility] - Labs Labs: 11/16/17 11:45 11/16/17 11:45 - Constitutional Appears: Well, Non-toxic - Head Exam Head Exam: ATRAUMATIC, NORMAL INSPECTION - Eye Exam Eye Exam: EOMI. absent: Conjunctival injection, Scleral icterus - Respiratory Exam Respiratory Exam: NORMAL BREATHING PATTERN. absent: Accessory Muscle Use - Cardiovascular Exam Cardiovascular Exam: REGULAR RHYTHM, RRR - GI/Abdominal Exam GI & Abdominal Exam: Soft, Tenderness (lower quads w/o guarding), Normal Bowel Sounds. absent: Distended, Firm, Guarding, Rigid, Mass, Organomegaly, Pulsatile Mass, Rebound Assessment and Plan - Assessment and Plan (Free Text) Assessment: 82 yo F with h/o diverticulitis, DM2, HTN, HLD presenting with abdominal pain. # Recurrent diverticulitis: Recto-sigmoid. Last episode in April 2017 with microperfs. Pt would qualify from surgical intervention, but given advanced age would need to discuss risks and benefits. CSPY 06/30/17 with recto-sig diverticulosis associated with colonic narrowing again re-demonstrated on PO contrasted CT 11/16/17. Plan: - Agree with Pip/Tazo, f/u BCx - Surgical Consult appreciated - Clear liquid diet if OK after surgical evaluation - Fiber and stool softeners/laxatives for daily BMs Thank you for the consult, will continue to follow. Pt seen and examined with Dr. Dejesus. Please see attestation for further recs/ changes. <Khushbu Dejesus - Last Filed: 11/17/17 13:06> Objective - Vital Signs/Intake and Output Vital Signs (last 24 hours): Temp Pulse Resp BP Pulse Ox 98.3 F 69 18 131/62 98 11/17/17 08:27 11/17/17 08:27 11/17/17 08:27 11/17/17 08:27 11/17/17 08:27 - Medications Medications: Current Medications Atorvastatin Calcium (Lipitor) 10 mg PO HS [facility] Last Admin: 11/16/17 21:26 Dose: Not Given Piperacillin Sod/Tazobactam (Sod 3.375 gm/ Sodium Chloride) 100 mls @ 100 mls/ hr IVPB Q6 ASIF PRN Reason: Protocol Last Admin: 11/17/17 09:13 Dose: 100 mls/hr Potassium Chloride/Dextrose/Sod Cl (Potassium Chl 20 Meq In D5-1/2ns) 1,000 mls @ 100 mls/hr IV .Q10H [facility] Stop: 11/18/17 07:30 Losartan Potassium (Cozaar) 50 mg PO DAILY [facility] Last Admin: 11/17/17 09:13 Dose: 50 mg Metformin HCl (Glucophage) 250 mg PO BIDWM [facility] Last Admin: 11/16/17 18:26 Dose: Not Given Ondansetron HCl (Zofran Inj) 4 mg IVP Q6 PRN PRN Reason: Nausea/Vomiting Last Admin: 11/17/17 02:57 Dose: 4 mg Pantoprazole Sodium (Protonix Ec Tab) 40 mg PO DAILY [facility] Last Admin: 11/17/17 09:13 Dose: Not Given - Labs Labs: 11/16/17 11:45 11/16/17 11:45 Attending/Attestation - Attestation I have personally seen and examined this patient.: Yes I have fully participated in the care of the patient.: Yes I have reviewed all pertinent clinical information, including history, physical exam and plan: Yes Notes (Text): 11/17/17 13:05 Patient seen this am. This is a 82 yo F with h/o diverticulitis - 3 episodes, DM2, HTN, HLD presenting with abdominal pain which is after having hard stools at home for few days and not taking stool softeners. In April with microperforation s/p colonoscopy in June that showed significant colonic narrowing from edema is sigmoid colon but no mass lesions, able to traverse and finish colonoscopy. On physical exam no guarding, rigidity or tenderness. She is hungry and wants to eat. Surgical consult appreciated. Will continue 10 days antibiotics and start clear liquid diet
--- NOTE | 2017-11-17 07:31 | CP.PCM.PN ---
Addendum entered and electronically signed by Osmin De La Cruz DO 11/17/17 07:59 : CLD for breakfast, ADAT Original Note: <Osmin De La Cruz - Last Filed: 11/17/17 07:49> Subjective - Date & Time of Evaluation Date of Evaluation: 11/17/17 Time of Evaluation: 07:49 - Subjective Subjective: General Surgery Note for Dr. Kilgore Patient seen and examined at bedside. No acute event overnight. This morning, patient was found to symptomatic hypoglycemic. D50 IVP was given. Patient was experiencing dizziness/lightheadedness and weakness. Patient also complaining of suprapubic abdominal pain. Admits to flatus and BM. Denies fever/chills and nausea/vomiting. Objective - Vital Signs/Intake and Output Vital Signs (last 24 hours): Temp Pulse Resp BP Pulse Ox 97.7 F 69 19 120/59 L 97 11/17/17 00:00 11/17/17 00:00 11/17/17 00:00 11/17/17 00:00 11/17/17 00:00 - Medications Medications: Current Medications Atorvastatin Calcium (Lipitor) 10 mg PO HS [facility] Last Admin: 11/16/17 21:26 Dose: Not Given Famotidine (Pepcid) 20 mg PO BID [facility] Last Admin: 11/17/17 03:51 Dose: 20 mg Piperacillin Sod/Tazobactam (Sod 3.375 gm/ Sodium Chloride) 100 mls @ 100 mls/ hr IVPB Q6 [facility] PRN Reason: Protocol Last Admin: 11/17/17 03:02 Dose: 100 mls/hr Potassium Chloride/Dextrose/Sod Cl (Potassium Chl 20 Meq In D5-1/2ns) 1,000 mls @ 100 mls/hr IV .Q10H ASIF Stop: 11/18/17 07:30 Losartan Potassium (Cozaar) 50 mg PO DAILY [facility] Metformin HCl (Glucophage) 250 mg PO BIDWM [facility] Last Admin: 11/16/17 18:26 Dose: Not Given Ondansetron HCl (Zofran Inj) 4 mg IVP Q6 PRN PRN Reason: Nausea/Vomiting Last Admin: 11/17/17 02:57 Dose: 4 mg Pantoprazole Sodium (Protonix Ec Tab) 40 mg PO DAILY [facility] - Labs Labs: 11/16/17 11:45 11/16/17 11:45 - Additional Findings Additional findings: - Constitutional Appears: Non-toxic, No Acute Distress - Head Exam Head Exam: ATRAUMATIC, NORMOCEPHALIC - Eye Exam Eye Exam: EOMI. absent: Scleral icterus - ENT Exam ENT Exam: Mucous Membranes Moist - Neck Exam Neck exam: Positive for: Full Rom. Negative for: Tenderness - Respiratory Exam Respiratory Exam: NORMAL BREATHING PATTERN. absent: Respiratory Distress - Cardiovascular Exam Cardiovascular Exam: RRR, +S1, +S2 - GI/Abdominal Exam GI & Abdominal Exam: Soft, Tenderness (in suprapubic region). absent: Firm, Guarding, Hernia, Rebound, Rigid - Extremities Exam Extremities exam: Positive for: pedal pulses present. Negative for: calf tenderness, pedal edema - Back Exam Back exam: absent: CVA tenderness (L), CVA tenderness (R) - Neurological Exam Neurological exam: Alert, Oriented x3 - Skin Skin Exam: Dry, Warm Assessment and Plan - Assessment and Plan (Free Text) Assessment: 82F with sigmoid diverticulosis with segment of narrowing Plan: NPO IVF swithceed to D5 0.45% with 20 mEq KCL Hypoglycemic protocol Metformin held Continue IV abx Analgesia/Anti-emetics PRN Serial abdominal exams Discussed Risks and benefits of surgical intervention as well as nonoperative management. No plans for immediate surgery at this time Follow up in the office as an outpatient if wants surgery Upon discharge, will need to follow a high fiber diet with stool softener and bulking agent to help prevent further episodes Will continue to follow patient Further recommendations as per Dr. Jame De La Cruz PGY2 <Jay Kilgore - Last Filed: 11/18/17 16:21> Objective - Vital Signs/Intake and Output Vital Signs (last 24 hours): Temp Pulse Resp BP Pulse Ox 97.7 F 60 20 137/77 99 11/18/17 08:36 11/18/17 09:45 11/18/17 08:36 11/18/17 09:45 11/18/17 08:36 - Labs Labs: 11/16/17 11:45 11/16/17 11:45 Assessment and Plan - Assessment and Plan (Free Text) Plan: Seen and examined with resident staff. Agree with above. Patient now hungry, decreased pain and tenderness on exam. Diet as tolerated. Continue total Abx course for 14 days, PO augmentin on discharge (as she has already taken cipro/ flagyl previously). Konsyl daily and stimulant laxative on discharge. No need for additional colonoscopy as she had one recently. Follow up as outpatient if she decides to pursue sigmoid resection. I had a long discussion with Ms. Carballo regarding the management of recurrent uncomplicated diverticulitis. She is more likely to have further recurrence given she has had in past, but it does not mean that she would recur with complicated episode in future. Medical treatment with adherence to dietary and lifestyle modifications is best way for her to prevent future episodes. She was not taking fiber supplements or Miralax as previously advised and she had some confusion as to what foods she can/can not eat and those with good source of fiber. We clarified that legumes, eggplant are ok to eat without concern. In addition, she should be taking psyllium based supplement daily, adequate water intake 8-12 glasses per day, and stool/softening laxative agents, to prevent constipation/straining and allow regular soft formed bowel movements daily. She does not need an operation at the moment as she is clinically improving. If ever needed would be best to do electively as one-stage laparoscopic resection rather than urgently for complicated episode which would more likely require open surgery and temporary colostomy. Indications for surgery would include complicated diverticulitis or complications arising from chronic inflammation not responsive to adequate medical therapy and dietary modifications. She understands the above and doesn't think that major surgery at her age is best for her and would like to talk it over with her family. I think that is completely reasonable to manage expectantly as she now has a better understanding and will be more proactive about the above. She would also benefit from nutrition consult to discuss dietary options, and would like to speak with them. My office number was provided in case she has further questions or would like to come in for office consultation.
[2017-11-17] MEDS ORDERED: MAGNESIUM OXIDE 250 MG PO SCH (09:00)
[2017-11-17] MEDS: Pantoprazole 40 mg EC Tab PO SCH (09:13)
--- NOTE | 2017-11-17 09:29 | CP.PCM.HP ---
History of Present Illness - History of Present Illness History of Present Illness: This 82-year-old female who has a history of diabetes mellitus and hypertension as well as dyslipidemia came into the emergency room complaining of left lower quadrant pain which was off and on for approximately 5 days accompanied by a sense of bloatedness nausea but no vomiting or chills. The patient has had a diagnosis of diverticulitis and has been in the emergency room at this institution as well as a nearby hospital and this is the third episode within 6 months. During her last hospitalization the patient had evidence off microperforations on her CT scan. Apparently the patient has been delinquent in taking stool softeners and has been eating fruits containing tiny seeds. She has had a colonoscopy on June 30 which revealed evidence of multiple diverticuli in the rectosigmoid as well as sigmoid and descending colon with areas of colonic narrowing secondary to prior inflammation process. Physical examination shows a thin built diminutive elderly female who is quite alert awake coherent and afebrile. She reports a vague sense of discomfort in the left lower quadrant but denies any excruciating pain or nausea at this point. She denies any chills. Her heart rate was 78 bpm regular and her blood pressure was 134/74 mmHg. Her jugular venous pressure was not elevated and there was no edema over his lower extremities. The pedal pulses were well felt. There were no carotid bruits. The apex was in the fifth space the first and second heart sounds were normal there was no murmur or gallop there were no rales. Abdomen was soft again tenderness was evident in the left lower quadrant though there was no guarding or rigidity or mass felt in this area. Her rectal examination was deferred. Intestinal sounds were well heard. Her lab data shows a normal WBC count though the neutrophilic count was elevated. Her hemoglobin and hematocrit BUN/creatinine and electrolytes appeared normal. CT scan of the abdomen was noted. Impression :acute diverticulitis in a patient who has had multiple episodes and evidence of microperforation in the past. Hypertension diabetes and dyslipidemia. I have discussed her case with the group fitness manager who feels that a surgical assessment should be obtained given recurrent episodes of acute inflammation and evidence of microperforation in the recent past as well as evidence of scarring with narrowing of colonic lumen in the area of diverticulosis. In the meantime the patient continues on intravenous anti-biotics and has no evidence of acute abdomen. Present on Admission - Present on Admission Any Indicators Present on Admission: No Past Patient History - Infectious Disease Hx of Infectious Diseases: None - Past Medical History & Family History Past Medical History?: Yes - Past Social History Smoking Status: Never Smoked - CARDIAC Hx Cardiac Disorders: Yes - PULMONARY Hx Respiratory Disorders: No - NEUROLOGICAL Hx Neurological Disorder: No - HEENT Hx HEENT Problems: Yes Hx Cataracts: Yes - RENAL Hx Chronic Kidney Disease: No - ENDOCRINE/METABOLIC Hx Endocrine Disorders: Yes - HEMATOLOGICAL/ONCOLOGICAL Hx Human Immunodeficiency Virus (HIV): No - INTEGUMENTARY Hx Dermatological Problems: No - MUSCULOSKELETAL/RHEUMATOLOGICAL Hx Musculoskeletal Disorders: No Hx Falls: No - GASTROINTESTINAL Hx Diverticulitis: Yes Hx Gastritis: Yes - GENITOURINARY/GYNECOLOGICAL Hx Genitourinary Disorders: No Other/Comment: MISCARRIAGE X2 - PSYCHIATRIC Hx Psychophysiologic Disorder: No Hx Substance Use: No - SURGICAL HISTORY Hx Cholecystectomy: Yes - ANESTHESIA Hx Anesthesia: Yes Hx Anesthesia Reactions: No Hx Malignant Hyperthermia: No Meds Allergies/Adverse Reactions: Allergies Allergy/AdvReac Type Severity Reaction Status Date / Time iodine Allergy Mild RASH Verified 06/30/17 08:06 chocolate flavor Allergy HEADACHE Verified 06/30/17 08:06 yellow cheese Allergy Mild HEADACHE Uncoded 06/30/17 08:06 msg Allergy HEADACHE Uncoded 06/30/17 08:06 Results - Vital Signs Recent Vital Signs: Last Vital Signs Temp 98.3 F 11/17/17 08:27 Pulse 69 11/17/17 08:27 Resp 18 11/17/17 08:27 BP 131/62 11/17/17 08:27 Pulse Ox 98 11/17/17 08:27 - Labs Result Diagrams: 11/16/17 11:45 11/16/17 11:45 Labs: Laboratory Results - last 24 hr 11/16/17 11/16/17 11/16/17 11:45 11:45 11:45 WBC 7.6 RBC 3.80 Hgb 12.2 Hct 36.4 MCV 95.7 MCH 32.0 H MCHC 33.5 RDW 12.7 Plt Count 187 MPV 8.7 Neut % (Auto) 80.9 H Lymph % (Auto) 13.3 L [place] % (Auto) 5.2 Eos % (Auto) 0.1 Baso % (Auto) 0.5 Neut # (Auto) 6.1 Lymph # (Auto) 1.0 [place] # (Auto) 0.4 Eos # (Auto) 0.0 Baso # (Auto) 0.0 pO2 26 L VBG pH 7.40 VBG pCO2 48 VBG HCO3 26.7 VBG Total CO2 31.2 H VBG O2 Sat (Calc) 51.9 VBG Base Excess 4.0 H VBG Potassium 3.6 Sodium 132.0 135 Chloride 98.0 96 L Glucose 118 H Lactate 1.0 FiO2 21.0 Potassium 3.6 Carbon Dioxide 29 Anion Gap 14 BUN 6 L Creatinine 0.6 L Est GFR ( Amer) > 60 Est GFR (Non-Af Amer) > 60 POC Glucose (mg/dL) Random Glucose 112 H Calcium 9.4 Total Bilirubin 0.3 AST 41 H D ALT 33 Alkaline Phosphatase 88 Total Protein 8.4 H Albumin 4.3 Globulin 4.1 H Albumin/Globulin Ratio 1.0 Venous Blood Potassium 3.6 11/16/17 11/16/17 11/17/17 15:53 21:45 05:29 WBC RBC Hgb Hct MCV MCH MCHC RDW Plt Count MPV Neut % (Auto) Lymph % (Auto) [place] % (Auto) Eos % (Auto) Baso % (Auto) Neut # (Auto) Lymph # (Auto) [place] # (Auto) Eos # (Auto) Baso # (Auto) pO2 VBG pH VBG pCO2 VBG HCO3 VBG Total CO2 VBG O2 Sat (Calc) VBG Base Excess VBG Potassium Sodium Chloride Glucose Lactate FiO2 Potassium Carbon Dioxide Anion Gap BUN Creatinine Est GFR ( Amer) Est GFR (Non-Af Amer) POC Glucose (mg/dL) 118 H 91 62 L Random Glucose Calcium Total Bilirubin AST ALT Alkaline Phosphatase Total Protein Albumin Globulin Albumin/Globulin Ratio Venous Blood Potassium 11/17/17 07:36 WBC RBC Hgb Hct MCV MCH MCHC RDW Plt Count MPV Neut % (Auto) Lymph % (Auto) [place] % (Auto) Eos % (Auto) Baso % (Auto) Neut # (Auto) Lymph # (Auto) [place] # (Auto) Eos # (Auto) Baso # (Auto) pO2 VBG pH VBG pCO2 VBG HCO3 VBG Total CO2 VBG O2 Sat (Calc) VBG Base Excess VBG Potassium Sodium Chloride Glucose Lactate FiO2 Potassium Carbon Dioxide Anion Gap BUN Creatinine Est GFR ( Amer) Est GFR (Non-Af Amer) POC Glucose (mg/dL) 210 H Random Glucose Calcium Total Bilirubin AST ALT Alkaline Phosphatase Total Protein Albumin Globulin Albumin/Globulin Ratio Venous Blood Potassium
[2017-11-17] MEDS: Potassium Ch 20mEq in D5-1/2NS 1,000 ML IV SCH ×2 (11:15→16:59)
--- NOTE | 2017-11-17 12:23 | CT ---
PROCEDURE: CT Abdomen and Pelvis without IV contrast. HISTORY: dr foster COMPARISON: CT of the abdomen pelvis without contrast performed 11/16/17 TECHNIQUE: Contiguous axial images of the abdomen and pelvis. Oral contrast was administered. No IV contrast given. Coronal and Sagittal reformats generated and reviewed. Radiation dose: Total exam DLP = 219.07 mGy-cm. This CT exam was performed using one or more of the following dose reduction techniques: Automated exposure control, adjustment of the mA and/or kV according to patient size, and/or use of iterative reconstruction technique. FINDINGS: There is limited evaluation of the solid organs without the administration of IV contrast. LOWER THORAX: Bibasilar atelectasis. 3 mm right lower lobe pulmonary nodule. No visible pleural effusion or pneumothorax. LIVER: Unremarkable. GALLBLADDER AND BILE DUCTS: Cholecystectomy. PANCREAS: Atrophic. SPLEEN: Unremarkable. ADRENALS: Unremarkable. KIDNEYS AND URETERS: No hydronephrosis or obstructing renal calculus. 10 mm low-density exophytic left renal lesion measures approximately 13 HU, likely cyst. BLADDER: The urinary bladder appears unremarkable. REPRODUCTIVE: Uterus is present. APPENDIX: The presumed appendix appears within normal limits of caliber. No secondary signs of acute appendicitis. BOWEL: The stomach is nondistended. The bowel loops appear within normal limits of caliber without evidence of intestinal obstruction. Extensive sigmoid colon wall thickening and diverticulosis similar prior study. Oral contrast is identified within the stomach, small bowel and colon extending to the level of diverticulosis involving the sigmoid colon; oral contrast is not identified passing through to the rectum. Underlying neoplasm cannot be excluded. PERITONEUM: No significant free fluid. No definite free air. LYMPH NODES: No bulky lymphadenopathy identified. VASCULATURE: No aortic aneurysm. BONES: Degenerative changes. Scoliosis. Osseous demineralization. OTHER FINDINGS: Evidence of injection granulomas involving the gluteal region. IMPRESSION: Extensive sigmoid wall thickening and diverticular disease similar to prior study. Oral contrast is identified proximal to this region of diverticular change however oral contrast is not identified extending through to the rectum. Underlying neoplasm cannot be excluded. 3 mm right lower lobe pulmonary nodule. An optional CT at 12 months is recommended. Additional findings as above. Preliminary impression was provided by virtual radiologic.
[2017-11-18] MEDS: Potassium Ch 20mEq in D5-1/2NS 1,000 ML IV SCH ×2 (03:30→04:51)
[2017-11-18] MEDS: Piperacillin/Tazobact 3.375 GM in Sodium Chloride 0.9% 100 ML IVPB SCH ×2 (04:49→09:44)
--- NOTE | 2017-11-18 08:34 | CP.PCM.PN ---
Subjective - Date & Time of Evaluation Date of Evaluation: 11/18/17 Time of Evaluation: 08:05 - Subjective Subjective: Pt has had few well formed BMs over last 24 hrs Abd pain much relieved No nausea/vimitting, has tolerated clear liquids well No chills or fever Abd soft, mild tenderness at Lt LQ (No guaeding or rigidity) Discussed with GI Pt to go home if she tolerates solids (On oral ABx) Will see surgeon as out pt (?? need for Sx) Objective - Vital Signs/Intake and Output Vital Signs (last 24 hours): Temp Pulse Resp BP Pulse Ox 97.5 F L 60 18 137/77 98 11/18/17 00:36 11/18/17 00:36 11/18/17 00:36 11/18/17 00:36 11/18/17 00:36 - Medications Medications: Current Medications Atorvastatin Calcium (Lipitor) 10 mg PO HS [facility] Last Admin: 11/17/17 22:35 Dose: Not Given Piperacillin Sod/Tazobactam (Sod 3.375 gm/ Sodium Chloride) 100 mls @ 100 mls/ hr IVPB Q6 ASIF PRN Reason: Protocol Last Admin: 11/18/17 04:49 Dose: 100 mls/hr Losartan Potassium (Cozaar) 50 mg PO DAILY [facility] Last Admin: 11/17/17 09:13 Dose: 50 mg Metformin HCl (Glucophage) 250 mg PO BIDWM [facility] Last Admin: 11/16/17 18:26 Dose: Not Given Ondansetron HCl (Zofran Inj) 4 mg IVP Q6 PRN PRN Reason: Nausea/Vomiting Last Admin: 11/17/17 02:57 Dose: 4 mg Pantoprazole Sodium (Protonix Ec Tab) 40 mg PO DAILY [facility] Last Admin: 11/17/17 09:13 Dose: Not Given - Labs Labs: 11/16/17 11:45 11/16/17 11:45
[2017-11-18 08:36] VITALS: RESP 20; TEMP 97.7; O2SAT 99
[2017-11-18] MEDS: Pantoprazole 40 mg EC Tab PO SCH (09:45)
[2017-11-18 09:52] VITALS: BP 137/77; PULSE 60
--- NOTE | 2017-11-18 10:16 | CP.PCM.PN ---
<Neto Damon - Last Filed: 11/18/17 10:14> Subjective - Date & Time of Evaluation Date of Evaluation: 11/18/17 Time of Evaluation: 09:45 - Subjective Subjective: PGY-4 GI Fellow Prog Note Pt lying in bed eating breakfast this AM when seen. States she tolerated liquid diet yesterday well; however, felt some nausea this AM with solids. Abd pain overall improved and reports BMs, 1x somewhat reddish per her report but she attributes it to drinking a lot of cranberry juice over the day yesterday. 5 point ROS negative other than stated above Objective - Vital Signs/Intake and Output Vital Signs (last 24 hours): Temp Pulse Resp BP Pulse Ox 97.7 F 60 20 137/77 99 11/18/17 08:36 11/18/17 09:45 11/18/17 08:36 11/18/17 09:45 11/18/17 08:36 - Medications Medications: Current Medications Atorvastatin Calcium (Lipitor) 10 mg PO HS [facility] Last Admin: 11/17/17 22:35 Dose: Not Given Piperacillin Sod/Tazobactam (Sod 3.375 gm/ Sodium Chloride) 100 mls @ 100 mls/ hr IVPB Q6 [facility] PRN Reason: Protocol Last Admin: 11/18/17 09:44 Dose: 100 mls/hr Losartan Potassium (Cozaar) 50 mg PO DAILY [facility] Last Admin: 11/18/17 09:45 Dose: 50 mg Metformin HCl (Glucophage) 250 mg PO BIDWM [facility] Last Admin: 11/16/17 18:26 Dose: Not Given Ondansetron HCl (Zofran Inj) 4 mg IVP Q6 PRN PRN Reason: Nausea/Vomiting Last Admin: 11/17/17 02:57 Dose: 4 mg Pantoprazole Sodium (Protonix Ec Tab) 40 mg PO DAILY [facility] Last Admin: 11/18/17 09:45 Dose: 40 mg - Labs Labs: 11/16/17 11:45 11/16/17 11:45 - Constitutional Appears: Well, Non-toxic, No Acute Distress - Head Exam Head Exam: ATRAUMATIC, NORMAL INSPECTION - Eye Exam Eye Exam: EOMI. absent: Conjunctival injection, Scleral icterus - ENT Exam ENT Exam: Mucous Membranes Moist, Normal External Ear Exam. absent: Mucous Membranes Dry - Respiratory Exam Respiratory Exam: NORMAL BREATHING PATTERN. absent: Accessory Muscle Use - Cardiovascular Exam Cardiovascular Exam: REGULAR RHYTHM, RRR - GI/Abdominal Exam GI & Abdominal Exam: Soft, Tenderness (mildly in lower quads w/o guarding), Normal Bowel Sounds. absent: Bruit, Distended, Firm, Guarding, Rigid, Mass Assessment and Plan - Assessment and Plan (Free Text) Assessment: 82 yo F with h/o diverticulitis, DM2, HTN, HLD presenting with abdominal pain. # Recurrent diverticulitis: Recto-sigmoid. At least 3 episodes. Last episode in April 2017 with microperfs. Pt would qualify for surgical intervention, but given advanced age would need to discuss risks and benefits. CSPY 06/30/17 with recto-sig diverticulosis associated with colonic narrowing again re- demonstrated on PO contrasted CT 11/16/17. Overall improving during this stay. Plan: - Agree with Pip/Tazo --- To complete 10 day course of Abx - BCx NGTD - Surgical Consult appreciated, plan to f/u as OP if surgery desired - ADAT, OK to DC from GI perspective if tolerating PO - Fiber and stool softeners/laxatives for daily BMs Thank you for the consult, will sign off. Please page if questions. Pt discussed with Dr. Dejesus. Please see attestation for further recs/changes. <Khushbu Dejesus - Last Filed: 11/18/17 13:06> Objective - Vital Signs/Intake and Output Vital Signs (last 24 hours): Temp Pulse Resp BP Pulse Ox 97.7 F 60 20 137/77 99 11/18/17 08:36 11/18/17 09:45 11/18/17 08:36 11/18/17 09:45 11/18/17 08:36 - Medications Medications: Current Medications Atorvastatin Calcium (Lipitor) 10 mg PO HS [facility] Last Admin: 11/17/17 22:35 Dose: Not Given Piperacillin Sod/Tazobactam (Sod 3.375 gm/ Sodium Chloride) 100 mls @ 100 mls/ hr IVPB Q6 [facility] PRN Reason: Protocol Last Admin: 11/18/17 09:44 Dose: 100 mls/hr Losartan Potassium (Cozaar) 50 mg PO DAILY [facility] Last Admin: 11/18/17 09:45 Dose: 50 mg Metformin HCl (Glucophage) 250 mg PO BIDWM [facility] Last Admin: 11/16/17 18:26 Dose: Not Given Ondansetron HCl (Zofran Inj) 4 mg IVP Q6 PRN PRN Reason: Nausea/Vomiting Last Admin: 11/17/17 02:57 Dose: 4 mg Pantoprazole Sodium (Protonix Ec Tab) 40 mg PO DAILY [facility] Last Admin: 11/18/17 09:45 Dose: 40 mg - Labs Labs: 11/16/17 11:45 11/16/17 11:45 Attending/Attestation - Attestation I have personally seen and examined this patient.: Yes I have fully participated in the care of the patient.: Yes I have reviewed all pertinent clinical information, including history, physical exam and plan: Yes Notes (Text): 11/18/17 12:55 Patient seen this am. This is a 82 yo F with h/o diverticulitis - 3 episodes, DM2, HTN, HLD presenting with abdominal pain which is after having hard stools at home for few days and not taking stool softeners. In April with micro perforation s/p colonoscopy in June that showed significant colonic narrowing from edema is sigmoid colon but no mass lesions, able to traverse and finish colonoscopy. On physical exam no guarding, rigidity or tenderness. Surgical consult appreciated. Will continue 10 days antibiotics po and diet as tolerated. Follow with GI and surgeon in 4 weeks as outpatient
--- NOTE | 2017-11-18 11:31 | CP.PCM.PN ---
<DragandavidOsmin amor - Last Filed: 11/18/17 11:28> Subjective - Date & Time of Evaluation Date of Evaluation: 11/18/17 Time of Evaluation: 11:28 - Subjective Subjective: General Surgery Note for Dr. Kilgore Patient seen and examined at bedside. No acute event overnight. Patient states that abdominal pain has resolved. She is on regular diet. She admits to some fullness but denies nausea/vomiting. She is passing flatus and having BM. Objective - Vital Signs/Intake and Output Vital Signs (last 24 hours): Temp Pulse Resp BP Pulse Ox 97.7 F 60 20 137/77 99 11/18/17 08:36 11/18/17 09:45 11/18/17 08:36 11/18/17 09:45 11/18/17 08:36 - Medications Medications: Current Medications Atorvastatin Calcium (Lipitor) 10 mg PO HS [facility] Last Admin: 11/17/17 22:35 Dose: Not Given Piperacillin Sod/Tazobactam (Sod 3.375 gm/ Sodium Chloride) 100 mls @ 100 mls/ hr IVPB Q6 ASIF PRN Reason: Protocol Last Admin: 11/18/17 09:44 Dose: 100 mls/hr Losartan Potassium (Cozaar) 50 mg PO DAILY [facility] Last Admin: 11/18/17 09:45 Dose: 50 mg Metformin HCl (Glucophage) 250 mg PO BIDWM [facility] Last Admin: 11/16/17 18:26 Dose: Not Given Ondansetron HCl (Zofran Inj) 4 mg IVP Q6 PRN PRN Reason: Nausea/Vomiting Last Admin: 11/17/17 02:57 Dose: 4 mg Pantoprazole Sodium (Protonix Ec Tab) 40 mg PO DAILY [facility] Last Admin: 11/18/17 09:45 Dose: 40 mg - Labs Labs: 11/16/17 11:45 11/16/17 11:45 - Additional Findings Additional findings: - Constitutional Appears: No Acute Distress - Head Exam Head Exam: ATRAUMATIC, NORMOCEPHALIC - Eye Exam Eye Exam: Normal appearance - ENT Exam ENT Exam: Mucous Membranes Moist - Respiratory Exam Respiratory Exam: NORMAL BREATHING PATTERN. absent: Respiratory Distress - Cardiovascular Exam Cardiovascular Exam: RRR, +S1, +S2 - GI/Abdominal Exam GI & Abdominal Exam: Soft. absent: Firm, Guarding, Hernia, Rebound, Rigid, Tenderness. - Neurological Exam Neurological exam: Alert, Oriented x3 - Skin Skin Exam: Dry, Warm Assessment and Plan - Assessment and Plan (Free Text) Assessment: 82F with sigmoid diverticulosis with segment of narrowing Plan: Reg diet, take it slow Patient clear for discharge from surgical standpoint DC with oral Augmentin No plans for immediate surgery at this time Follow up in the office as an outpatient if wants surgery Follow a high fiber diet with stool softener and bulking agent to help prevent further episodes Further recommendations as per Dr. Jame De La Cruz PGY2 <Jay Kilgore - Last Filed: 11/18/17 16:25> Objective - Vital Signs/Intake and Output Vital Signs (last 24 hours): Temp Pulse Resp BP Pulse Ox 97.7 F 60 20 137/77 99 11/18/17 08:36 11/18/17 09:45 11/18/17 08:36 11/18/17 09:45 11/18/17 08:36 - Labs Labs: 11/16/17 11:45 11/16/17 11:45 Assessment and Plan - Assessment and Plan (Free Text) Plan: Agree with above. See comments from previous notes for full details.
== END 2017-11-18 14:23 | disposition home or self-care (01) | DRG 392 ==
LOC: H.ER 10:49 → H.ERHOLD 13:32 → H.MEDSURG1 14:47
PROVIDERS: ADMIT Internal Medicine Cardiovascular Disease; ATTEND Internal Medicine Cardiovascular Disease
DX: K57.32 Diverticulitis of large intestine without perforation or abscess without bleeding (principal); E11.649 Type 2 diabetes mellitus with hypoglycemia without coma; E78.00 Pure hypercholesterolemia, unspecified; E78.5 Hyperlipidemia, unspecified; I10 Essential (primary) hypertension; Z90.49 Acquired absence of other specified parts of digestive tract; G43.909 Migraine, unspecified, not intractable, without status migrainosus; H26.9 Unspecified cataract; K29.70 Gastritis, unspecified, without bleeding; Z79.84 Long term (current) use of oral hypoglycemic drugs

== ENCOUNTER 2018-06-14 13:33 | Emergency (ER) | payer MEDICARE ==
[2018-06-14 13:46] VITALS: RESP 17
[2018-06-14 14:57] LABS: BASO % 0.5 % (0.0-2.0); EOS % 0.5 % (0.0-4.0); HEMOGLOBIN 12.8 g/dL (12.0-16.0); LYMPH # 2.1 K/uL (1.0-4.3); LYMPH % 26.1 % (20.0-40.0); MEAN CELL VOLUME 95.9 fl (81.0-99.0); MEAN CORPUSCULAR HEMOGLOBIN 32.6 pg (27.0-31.0); MEAN PLATELET VOLUME 8.3 fl (7.2-11.7); MONO # 0.3 K/uL (0.0-0.8); MONO % 4.2 % (0.0-10.0); NEUT # 5.6 K/uL (1.8-7.0); NEUT % 68.7 % (50.0-75.0); RBC 3.92 Mil/uL (3.80-5.20); RED CELL DISTRIBUTION WIDTH 13.1 % (11.5-14.5); WHITE BLOOD COUNT 8.2 K/uL (4.8-10.8)
[2018-06-14 15:20] LABS: BLOOD UREA NITROGEN 8 mg/dl (7-17); CALCIUM 9.9 mg/dL (8.4-10.2); GFR NON-AFRICAN AMERICAN > 60
--- NOTE | 2018-06-14 15:27 | ED PDOC ---
HPI: Chest Pain Time Seen by Provider: 06/14/18 13:57 Chief Complaint (Nursing): Chest Pain History Per: Patient History/Exam Limitations: no limitations Onset/Duration Of Symptoms: Days (2) Current Symptoms Are (Timing): Still Present Severity: Moderate Pain Scale Rating Of: 4 Modifying Factors: None Exacerbating Factors: None Alleviating Factors: None Additional History Per: Patient Additional Complaint(s): Patient reports bodyaches, chills, and dry couigh for 2 days. She reports chest pain since this morning. No vomiting. No fever. Past Medical History Reviewed: Historical Data, Nursing Documentation, Vital Signs Vital Signs: Last Vital Signs Temp 98.4 F 06/14/18 13:43 Pulse 95 H 06/14/18 13:54 Resp 17 06/14/18 13:54 BP 174/79 H 06/14/18 13:54 Pulse Ox 98 06/14/18 13:43 - Medical History PMH: Diabetes, Diverticulitis, Gastritis, HTN, Hypercholesterolemia Denies: HIV, Chronic Kidney Disease - Surgical History Surgical History: Cholecystectomy, - Family History Family History: States: Unknown Family Hx - Home Medications Home Medications: Ambulatory Orders Medication Instructions Recorded Ascorbic Acid [Vitamin C 500 mg 500 mg PO DAILY 11/16/17 Tab] Cholecalciferol (Vitamin D3) 5,000 unit PO BID 11/16/17 [Vitamin D3] Glucosamine Sulfate Dipot Chlr 1 tab PO BID 11/16/17 [Glucosamine] Lactobacillus Combination No.8 1 cap PO DAILY 11/16/17 [Adult Probiotic] Losartan [Cozaar] 50 mg PO DAILY 11/16/17 Magnesium Oxide [Magnesium] 250 mg PO DAILY 11/16/17 MetFORMIN ER [Glucophage XR] 500 mg PO DAILY 11/16/17 Pantoprazole Sodium [Protonix] 40 mg PO DAILY 11/16/17 Rosuvastatin Calcium [Crestor] 5 mg PO HS 11/16/17 Vit A/Vit C/Vit E/Zinc/Copper 1 cap PO BID 11/16/17 [Preservision Areds Softgel] Vitamin B Complex [Super B-50 1 cap PO DAILY 11/16/17 Complex] - Allergies Allergies/Adverse Reactions: Allergies Allergy/AdvReac Type Severity Reaction Status Date / Time iodine Allergy Mild RASH Verified 06/30/17 08:06 chocolate flavor Allergy HEADACHE Verified 06/30/17 08:06 yellow cheese Allergy Mild HEADACHE Uncoded 06/30/17 08:06 msg Allergy HEADACHE Uncoded 06/30/17 08:06 MICHELINE Risk Score for UA/NSTEMI - MICHELINE Risk Score Age > 64: NO 3 or more CAD Risk Factors: YES Known CAD (Stenosis greater than 50%): NO Aspirin use in past 7 days: NO Severe Angina: NO EKG ST changes greater than 0.5mm: NO Positive Cardiac Marker: NO MICHELINE Score: 1 Risk %: 5% Wells Criteria for PE - Wells Criteria for Pulmonary Embolism Clinical Signs and Symptoms of DVT: No P.E is #1 Diagnosis, or Equally Likely: No Heart Rate >100: No Immobilization at least 3 days;Surgery previous 4 weeks: No Previous, objectively diagnosed PE or DVT: No Malignancy w/treatment within 6 months, or palliative: No Total Score: 0 Review of Systems ROS Statement: Except As Marked, All Systems Reviewed And Found Negative Physical Exam - Reviewed Nursing Documentation Reviewed: Yes Vital Signs Reviewed: Yes - Physical Exam Appears: Positive for: Non-toxic, No Acute Distress Head Exam: Positive for: ATRAUMATIC, NORMAL INSPECTION Skin: Positive for: Normal Color, Warm, Dry Eye Exam: Positive for: EOMI Neck: Positive for: Normal, Painless ROM Cardiovascular/Chest: Positive for: Regular Rate, Rhythm Respiratory: Positive for: Normal Breath Sounds. Negative for: Respiratory Distress Gastrointestinal/Abdominal: Positive for: Soft. Negative for: Tenderness Extremity: Positive for: Normal ROM Neurological/Psych: Positive for: Awake, Alert, Oriented (x3) - Laboratory Results Result Diagrams: 06/14/18 14:45 06/14/18 14:45 - ECG O2 Sat by Pulse Oximetry: 98 - Radiology X-Ray: Viewed By Me, Read By Radiologist X-Ray Interpretation: No Acute Disease - Progress Re-evaluation Time: 16:30 Condition: Re-examined, Improved Medical Decision Making Medical Decision Making: Impression Chest pain, flu like symptoms Diff include Pneumonia, influenza Plans Labs influenza CXR EKG reassess Time: 1642 CXR RESULTS Date of service: 06/14/2018 HISTORY: chest pain COMPARISON: None available. TECHNIQUE: 1 view obtained. FINDINGS: LUNGS: No active pulmonary disease. PLEURA: No significant pleural effusion identified, no pneumothorax apparent. CARDIOVASCULAR: Calcific atherosclerotic changes are seen related to the thoracic aorta. Normal cardiac size. No pulmonary vascular congestion. OSSEOUS STRUCTURES: No significant abnormalities. VISUALIZED UPPER ABDOMEN: Surgical clips again noted right upper quadrant abdomen. OTHER FINDINGS: None. IMPRESSION: No interval acute cardiopulmonary disease appreciated. Disposition - Clinical Impression Clinical Impression: Chest pain, URI (upper respiratory infection) - Patient ED Disposition Is Patient to be Admitted: No Discussed With .: Blake Gayle Doctor Will See Patient In The: Office Counseled Patient/Family Regarding: Studies Performed, Diagnosis, Need For Followup - Disposition Referrals: Blake Gayle MD [Family Provider] - Disposition: Routine/Home Disposition Time: 16:40 Condition: GOOD Additional Instructions: LUCIA LOPEZ, thank you for letting us take care of you today. Your provider was Cesar Ocasio MD and you were treated for CHEST PAIN. The emergency medical care you received today was directed at your acute symptoms. If you were prescribed any medication, please fill it and take as directed. It may take several days for your symptoms to resolve. Return to the Emergency Department if your symptoms worsen, do not improve, or if you have any other problems. Please contact your doctor or call one of the physicians/clinics you have been referred to that are listed on the Patient Visit Information form that is included in your discharge packet. Bring any paperwork you were given at discharge with you along with any medications you are taking to your follow up visit. Our treatment cannot replace ongoing medical care by a primary care provider outside of the emergency department. Thank you for allowing the [facility] team to be part of your care today. If you had an X-Ray or CT scan: A Radiologist will review the ED reading if any change in treatment is needed we will contact you. Instructions: Chest Pain, Viral Upper Respiratory Infection, Adult (DC) Forms: [employer] (Turkmen)
[2018-06-14 15:30] LABS: B-TYPE NATRIURETIC PEPTIDE 93.4 pg/ml (0-900)
[2018-06-14 16:40] VITALS: PULSE 94; TEMP 98.9
[2018-06-14 16:44] VITALS: BP 140/79
--- NOTE | 2018-06-14 16:47 | RAD ---
Date of service: 06/14/2018 HISTORY: chest pain COMPARISON: None available. TECHNIQUE: 1 view obtained. FINDINGS: LUNGS: No active pulmonary disease. PLEURA: No significant pleural effusion identified, no pneumothorax apparent. CARDIOVASCULAR: Calcific atherosclerotic changes are seen related to the thoracic aorta. Normal cardiac size. No pulmonary vascular congestion. OSSEOUS STRUCTURES: No significant abnormalities. VISUALIZED UPPER ABDOMEN: Surgical clips again noted right upper quadrant abdomen. OTHER FINDINGS: None. IMPRESSION: No interval acute cardiopulmonary disease appreciated.
[2018-06-14 18:15] VITALS: O2SAT 99
--- NOTE | 2018-06-14 19:18 | CARD ---
APPROVED REPORT Date of service: 06/14/2018 EKG Measurement Heart [id number] <Conclusion> Normal sinus rhythm Possible Left atrial enlargement Left ventricular hypertrophy Abnormal ECG
== END 2018-06-14 17:00 | disposition home or self-care (01) ==
LOC: H.ER 13:33
DX: J06.9 Acute upper respiratory infection, unspecified (principal); R07.9 Chest pain, unspecified; E11.9 Type 2 diabetes mellitus without complications; I10 Essential (primary) hypertension; Z79.84 Long term (current) use of oral hypoglycemic drugs